=== PATIENT | male | born 1945 | race Caucasian/White ===

== ENCOUNTER 2017-04-21 08:42 | Emergency (ER) | payer BC, MEDICARE ==
[2017-04-21] MEDS ORDERED: Ketorolac INJ* 30 MG/ML 1 ML VIAL IV PUSH ONE (09:02)
[2017-04-21] MEDS ORDERED: Morphine INJ* 4 MG/ML 1 ML SYRINGE IV ONE (09:02)
--- NOTE | 2017-04-21 09:05 | ED ---
GI/ HPI - HPI Summary HPI Summary: 71M w/ PMH of kidney stones presents with right sided flank pain for two weeks. He states that when he has kidney stones it causes sciatica pain. He states over the past week his sciatica pain has gotten worst and at first it was just his toes that were numb but now it his entire right foot. He was seen at [facility] on 04/15 and told that he has a 2mm stone. They did not have a urologist available until May 01. He does not know who he would be following up with. Today he come in because he can not manage his pain at home. He took norco and said that it doesn't help. He has been taking flomax and ibuprofen. He denies any nausea, vomiting, diarrhea, constipation, dysuria, hematuria, frequency and urgency. He denies any injury. No loss of bowel or bladder or saddle anaesthesia His last kidney stone was 2 years ago and needed intervention with a stone placement done by Dr Farmer in [facility] who is now retired. He has been using a strainer and has not caught the stone yet. He denies any fevers. - History of Current Complaint Chief Complaint: EDFlankPain Time Seen by Provider: 04/21/17 08:49 Stated Complaint: FLANK PAIN Pain Intensity: 5 - Allergy/Home Medications Allergies/Adverse Reactions: Allergies Allergy/AdvReac Type Severity Reaction Status Date / Time Tetanus Toxoid Allergy Unknown Verified 04/21/17 09:36 Reaction Details PMH/Surg Hx/FS Hx/Imm Hx Endocrine/Hematology History: Denies: Hx Diabetes Cardiovascular History: Reports: Hx Hypertension, Other Cardiovascular Problems/ Disorders - stent Infectious Disease History: Denies: Traveled Outside the [place] in Last 30 Days - Family History Known Family History: Positive: Cardiac Disease Review of Systems Negative: Fever Negative: Chest Pain Negative: Shortness Of Breath Negative: Vomiting, Diarrhea, Nausea Positive: flank pain All Other Systems Reviewed And Are Negative: Yes Physical Exam Triage Information Reviewed: Yes Vital Signs On Initial Exam: Initial Vitals Temp Pulse Resp BP Pulse Ox 98.2 F 71 20 161/97 97 04/21/17 08:43 04/21/17 08:43 04/21/17 08:43 04/21/17 08:43 04/21/17 08:43 Vital Signs Reviewed: Yes Appearance: Positive: Well-Appearing Skin: Positive: Warm, Dry Head/Face: Positive: Normal Head/Face Inspection Eyes: Positive: Normal, EOMI, ED, Conjunctiva Clear ENT: Positive: Normal ENT inspection, Pharynx normal, TMs normal Respiratory/Lung Sounds: Positive: Clear to Auscultation, Breath Sounds Present Cardiovascular: Positive: Normal, RRR Abdomen Description: Positive: Nontender, Soft, Other: - pos SLR right. Negative: CVA Tenderness (R), CVA Tenderness (L) Bowel Sounds: Positive: Present Diagnostics - Vital Signs Vital Signs Temp Pulse Resp BP Pulse Ox 04/21/17 08:43 98.2 F 71 20 161/97 97 - Laboratory Result Diagrams: 04/21/17 09:23 04/21/17 09:23 Lab Statement: Any lab studies that have been ordered have been reviewed, and results considered in the medical decision making process. - Radiology abd Xray Interpretation: No Acute Changes Radiology Interpretation Completed By: Radiologist - Ultrasound No standard instances Ultrasound Interpretation: Positive (See Comments) - IMPRESSION: Marked right hydronephrosis with a weak right ureteral jets. Ultrasound Interpretation Completed By: Radiologist GRETTAU Course/Dx - Course Course Of Treatment: 71M w/ PMH of kidney stones presents with right sided flank pain for two weeks. He states that when he has kidney stones it causes sciatica pain. He states over the past week his sciatica pain has gotten worst and at first it was just his toes that were numb but now it his entire right foot. He was seen at [facility] on 04/15 and told that he has a 2mm stone. They did not have a urologist available until May 01. He does not know who he would be following up with. Today he come in because he can not manage his pain at home. He took norco and said that it doesn't help. He has been taking flomax and ibuprofen. He denies any nausea, vomiting, diarrhea, constipation, dysuria , hematuria, frequency and urgency. on exam neg CVA tenderness, pos SLR right. labs kidney function elevated. He has been straining in his urine and his stone has not passed. spoke with dr vega said would not take to OR. gave option of inpt pain management or outpt. pt decided to go outpt. got u/s before left. patient will follow up with urology. patient understands and agrees with plan. - Diagnoses Differential Diagnoses - Male: Pyelonephritis, Ureteral Calculi, Urinary Tract Infection Provider Diagnoses: Kidney stone - Physician Notifications Discussed Care Of Patient With: dr vega Time Discussed With Above Provider: 11:15 - would not operate, send home with pain meds or admit for pain control Discharge - Discharge Plan Condition: Good Disposition: HOME Prescriptions: Ondansetron ODT TAB* [Zofran 4 MG Odt TAB*] 4 mg PO Q6H PRN #12 tab.odt PRN Reason: Nausea Tamsulosin CAP* [Flomax CAP*] 0.4 mg PO DAILY #7 cap oxyCODONE/Acetamin 5/325 MG* [Percocet 5/325 TAB*] 1 tab PO Q6H PRN #20 tab MDD 4 PRN Reason: Pain Patient Education Materials: Kidney Stones (ED) Referrals: Michaela Nolasco MD [Primary Care Provider] - Salvador Vega MD [Medical Doctor] - Additional Instructions: Take ibuprofen every 6 hours and narcotic as needed every 6 hours Take Zofran every 6 hours for nausea as needed Take Flomax daily Follow up with urology, call office tomorrow for appointment Strain urine until collect stone Return to ED if unable to manage pain at home, develop fever, or any new or worsening symptoms
[2017-04-21] MEDS: NS 0.9% 1000 ML* 2,000 ML IV ONE (09:24)
[2017-04-21 09:40] LABS: Hematocrit 43 % (42-52); Hemoglobin 14.4 g/dl (14.0-18.0); Mean Corpuscular HGB Conc 34 g/dl (31-36); Mean Corpuscular Hemoglobin 31 pg (27-31); Mean Corpuscular Volume 94 fL (80-94); Mean Platelet Volume 8 um3 (7.4-10.4); Red Cell Distribution Width 14 % (10.5-15); White Blood Count 5.7 10^3/ul (3.5-10.8)
[2017-04-21 09:52] LABS: Albumin 4.1 g/dL (3.2-5.2); BUN/Creatinine Ratio 14.1 (8-20); Calcium 9.2 mg/dL (8.6-10.3); EGFR African American 32.2 (>60); Potassium 4.4 mmol/L (3.5-5.0); Total Bilirubin 0.5 mg/dL (0.2-1.0); Total Protein 7.1 g/dL (6.4-8.9)
--- NOTE | 2017-04-21 10:56 | RAD ---
Indication: Right flank pain. Flat and upright views of the abdomen demonstrates no free air. Nonspecific bowel gas pattern is noted. Stool is present throughout the colon. Degenerative changes are noted. IMPRESSION: No definite free air or obstruction is noted. No obvious radiopaque calculi is noted.
[2017-04-21 12:17] LABS: Urine Bilirubin Negative (Negative); Urine Glucose Negative (Negative); Urine Nitrite Negative (Negative)
--- NOTE | 2017-04-21 13:58 | RAD ---
Indication: Right-sided flank pain. Real-time sonography of the kidneys was performed. The right kidney measures 11.3 x 5.1 x 4.8 cm. Marked right hydronephrosis is noted. Cortical cyst right kidney measures 12 x 11 x 13 mm. Left kidney measures 12.1 x 6.1 x 6.5 cm. No hydronephrosis of left kidney is noted. Evaluation of the urinary bladder demonstrates post void residual of 8 mL. No bladder wall masses are noted. There is a weak right ureteral jet. The left ureteral jet is unremarkable. IMPRESSION: Marked right hydronephrosis with a weak right ureteral jets.
[2017-04-21 14:05] VITALS: BP 159/74
== END 2017-04-21 14:04 | disposition home or self-care (01) ==
LOC: ED 08:42
DX: N20.0 Calculus of kidney (principal); R10.84 Generalized abdominal pain
CPT/HCPCS: 36415; 74020; 76770; 80053; 81003; 85025; 96374; 96375; 99283; J1885; J2270

== ENCOUNTER 2017-04-23 11:13 | Day surgery (SDC) | payer MEDICARE ==
[2017-04-23] MEDS ORDERED: Lidocaine 2% PF * 5 ML VIAL ONE ×2 (12:17→17:55)
[2017-04-23] MEDS ORDERED: Propofol* 10 MG/ML 20 ML BTL IV PUSH ONE ×2 (12:17→17:55)
[2017-04-23] MEDS ORDERED: fentaNYL* 50 MCG/ML 2 ML VIAL (100 MCG VIAL) ONE ×2 (12:17→16:53)
[2017-04-23] MEDS ORDERED: Midazolam* 1 MG/ML 5 ML VIAL (5 MG) ONE ×2 (12:17→16:54)
[2017-04-23] MEDS ORDERED: KETAMINE HCL* 50 MG/ML 10 ML VIAL ONE ×2 (12:17→16:54)
[2017-04-23] MEDS ORDERED: Ondansetron INJ* 2 MG/ML VIAL ONE ×2 (12:17→17:55)
[2017-04-23] MEDS ORDERED: Dexamethasone IV* 4 MG/ML 1 ML (4 MG) ONE ×2 (12:17→17:55)
[2017-04-23] MEDS ORDERED: cefTRIAXone(*) 2 GM ADDV.VIAL IVPB ONE (12:46)
[2017-04-23] MEDS ORDERED: Iohexol 180 (CONTRAST) 10 ML SDV IV ONE ×2 (13:02→17:35)
[2017-04-23] MEDS ORDERED: Buffered Lidocaine 0.9% SYRIN* 5 ML/SYR SYRINGE INTRADERM ONE (14:19)
[2017-04-23] MEDS ORDERED: Famotidine IV* 10 MG/ML 2 ML (20 mg) IV ONE (14:19)
[2017-04-23] MEDS ORDERED: Famotidine IV* 10 MG/ML 2 ML (20 mg) ONE (14:26)
[2017-04-23] MEDS ORDERED: Metoprolol Tartrate IV* 1 MG/ML 5 ML VIAL ONE (17:30)
[2017-04-23] MEDS ORDERED: Phenylephrine IV* 40 MCG/ML 10 ML SYRINGE ONE (17:48)
--- NOTE | 2017-04-23 18:41 | RAD ---
INDICATION: Right-sided stent placement. COMPARISON: Comparison is made with a prior renal and bladder ultrasound from April 21, 2017. TECHNIQUE: 31 seconds of intermittent fluoroscopic guidance were provided and 4 spot films of the abdomen were centered on the right side. FINDINGS: There is partial opacification of the right renal collecting system. There is marked dilatation of the renal pelvis and calyces consistent with moderate to severe hydronephrosis. Subsequently there is placement of a double-J stent catheter on the right side which demonstrates normal course. IMPRESSION: INTRAOPERATIVE CONTROL FILMS. CPT II Codes: 6045F
[2017-04-23] MEDS ORDERED: Tamsulosin CAP* 0.4 MG ONE (18:56)
[2017-04-23] MEDS ORDERED: Morphine INJ* 2 MG/ML 1 ML SYRINGE IV PRN (19:27)
[2017-04-23] MEDS ORDERED: PROCHLORPERAZINE INJ 5 MG/ML 2 ML VIAL IV PRN (19:27)
[2017-04-23] MEDS ORDERED: fentaNYL* 50 MCG/ML 2 ML VIAL (100 MCG VIAL) IV PRN (19:27)
[2017-04-23] MEDS ORDERED: oxyCODONE/Acetamin 5/325 MG* TAB PO PRN (19:27)
[2017-04-23 19:59] VITALS: BP 154/92
--- NOTE | 2017-04-24 08:19 | OP ---
CC: Dr. Michaela Nolasco * DATE OF OPERATION: 04/23/17 - [facility] DATE OF : 49 SURGEON: Salvador Alberto MD ANESTHESIOLOGIST: Dr. Gamboa ANESTHESIA: General. PRE-OP DIAGNOSES: 1. Severe right hydronephrosis. 2. Calculus right ureter. POST-OP DIAGNOSES: 1. Severe right hydronephrosis. 2. Calculus right ureter. 3. 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 OPERATIVE PROCEDURE: Cystoscopy, right retrograde pyelogram, right ureteral dilatation, right ureteroscopy and stone extraction, and right stent insertion. INDICATIONS: Mike Kenney is a 71-year-old gentleman who has a history of ureteral calculus for which he underwent uteroscopy in [place] in 2016. He now presented with a 3-week history of right flank pain and was noted to have persistent severe right hydronephrosis. COMPLICATIONS: None. STENT USED: 8.5-Cameroonian 28-cm silicone stent right ureter. OPERATIVE FINDINGS: Severe stricture, right distal ureter with almost complete occlusion of ureteral lumen, small right ureteral calculus. Severe right hydronephrosis and proximal hydroureter. DESCRIPTION OF PROCEDURE: After induction of general anesthesia, the patient was placed in dorsal lithotomy position. Sequential compression devices were in place and functioning. Initial cystoscopy revealed mild stricture at the urethral meatus and mildly enlarged prostate and a normal-appearing bladder. Clear efflux was noted from the left ureter. There was no efflux noted from the right ureter, suggesting a complete obstruction. Guidewire was introduced into the right orifice. After progressing for about a centimeter to a centimeter and half, the wire would not advance any further and attempts at using a hydrophilic glidewire were also unsuccessful. A 6-Cameroonian semi-rigid ureteroscope was introduced and advanced under direct vision. About a centimeter above the ureterovesical junction, a fairly tight stricture was noted with almost complete occlusion of the lumen. A tiny calculus was noted just above the strictured area. Under direct vision, hydrophilic glidewire was advanced through the pinpoint lumen; and, once this was done, I was able to dilate the ureter carefully, initially using a 4- Cameroonian dilating catheter and then using an 8-Cameroonian catheter. Retrograde pyelogram revealed severe hydronephrosis and proximal hydroureter. The ureteroscope was carefully advanced under direct vision. The stricture extended for at least about 2 to 3 cm in length and the mucosa was blanched, suggesting an avascular process, probably secondary to a longstanding stricture. A small calculus was identified and was removed and sent for analysis. The ureteroscope was advanced to the level of the mid ureter which was dilated. The ureteroscope was carefully withdrawn under direct vision, and an 8.5 Cameroonian 28-cm silicone stent was introduced and positioned under fluoroscopy with good proximal and distal positioning obtained. My plan is to leave the stent in for 4 to 6 weeks and then to bring him back for a repeat procedure to reassess the stricture and possibly for balloon dilatation. The patient tolerated the procedure satisfactorily and was transferred back to the recovery area in stable condition. [id number]/CPS #: [id number] VELVET
== END 2017-04-23 19:45 | disposition home or self-care (01) ==
LOC: OR 11:13
PROVIDERS: ATTEND Urology
DX: N13.2 Hydronephrosis with renal and ureteral calculous obstruction (principal); N13.5 Crossing vessel and stricture of ureter without hydronephrosis; I12.9 Hypertensive chronic kidney disease with stage 1 through stage 4 chronic kidney disease, or unspecified chronic kidney disease; I42.9 Cardiomyopathy, unspecified; I25.10 Atherosclerotic heart disease of native coronary artery without angina pectoris; I25.5 Ischemic cardiomyopathy; E78.2 Mixed hyperlipidemia; N18.9 Chronic kidney disease, unspecified
CPT/HCPCS: 74420; 82365; A9270-GY; C1876; J0696; J1100; J2250; J2405; J2704; J3010

== ENCOUNTER 2017-05-12 08:32 | Emergency (ER) | payer MEDICARE ==
[2017-05-12] MEDS ORDERED: HYDROmorphone* 1 MG/ML 1 ML SYR IV ONE (09:32)
[2017-05-12] MEDS ORDERED: NS 0.9% 1000 ML* 1,000 ML IV ONE (09:32)
[2017-05-12] MEDS ORDERED: Ketorolac INJ* 30 MG/ML 1 ML VIAL IV ONE (09:32)
--- NOTE | 2017-05-12 10:05 | RAD ---
INDICATION: Right leg pain, radiation to the leg, recent right ureteral stent placement and hydronephrosis. COMPARISON: Comparison is made with prior renal and bladder ultrasound from April 21, 2017 and May 08, 2017. TECHNIQUE: A CT scan of the abdomen and pelvis was performed without intravenous or oral contrast. Contiguous axial sections were obtained from the lung bases through the symphysis pubis. Images were reconstructed in the coronal and sagittal planes. FINDINGS: There is mild dependent bilateral lower lobe subsegmental atelectasis. No pleural effusion is present. The liver and spleen are normal in size. There is a large coarse calcification along the superior aspect of the right hepatic lobe and a small central calcification. No other focal abnormalities are seen on this noncontrast study. No calcified gallstones are noted. The pancreas appears to be within normal limits. The adrenal glands and kidneys are normal in size. There are small bilateral hypodense renal lesions nonspecific on this noncontrast study although likely representing cysts. There is a punctate 1 mm calculus present in the lower pole of the right kidney. No hydronephrosis is present. There is a double-J stent ureteral catheter present on the right side which demonstrates normal course. No bladder calculi are seen. The aorta is mildly ectatic. There is moderate to severe calcific plaque present. No significant enlarged retroperitoneal lymph nodes are seen. There is a small hiatal hernia present. The stomach, small and large bowel appear nondistended. The appendix is within normal limits. There is mild descending and sigmoid diverticulosis without evidence for diverticulitis. No free intraperitoneal air or fluid is seen. 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 No significant focal osseous abnormality is seen. IMPRESSION: 1. NO EVIDENCE FOR ACUTE FINDING OR CAUSE FOR THE PATIENT'S ABDOMINAL PAIN IS SEEN. 2. STATUS POST RIGHT URETERAL STENT PLACEMENT. NO EVIDENCE FOR HYDRONEPHROSIS. 3. SMALL PUNCTATE NONOBSTRUCTING RIGHT RENAL CALCULUS.
--- NOTE | 2017-05-12 10:19 | RAD ---
INDICATION: Right-sided back pain radiation to the right leg. COMPARISON: There are no prior studies available for comparison. TECHNIQUE: Contiguous axial sections were obtained beginning above the T12 vertebra and continuing through the L5-S1 disc space. Images were reconstructed in the sagittal and coronal planes. FINDINGS: The vertebra are in normal alignment. No fracture is seen. At the L2-L3 level there is mild posterior endplate spurring and a mild broad-based disc bulge. No significant spinal canal narrowing is present. There is mild bilateral neural foraminal narrowing. At the L3-L4 level there is a mild broad-based disc bulge and mild hypertrophic changes within the facet joints. There is mild spinal canal and mild bilateral neural foraminal narrowing. At the L4-L5 level there is a [id number] broad-based disc bulge and moderate hypertrophic changes within the facet joints. There is moderate spinal canal narrowing and moderate to severe bilateral neural foraminal narrowing. At the L5-S1 level there is no evidence for disc bulge or herniation. There are moderate hypertrophic changes within the facet joints. No significant spinal canal narrowing is present. There is mild neural foraminal narrowing on the left side. At the L4-L5 level there is a small amount of aortic aneurysm measuring 2.6 cm in transverse dimension. IMPRESSION: 1. DIFFUSE DEGENERATIVE DISC DISEASE AND FACET OSTEOARTHRITIC CHANGES MOST PROMINENT AT THE L4-L5 LEVEL. AT THAT LEVEL THERE IS MODERATE SPINAL CANAL NARROWING AND MODERATE TO SEVERE BILATERAL NEURAL FORAMINAL NARROWING. IF THE PATIENT'S SYMPTOMS PERSIST CONSIDER FOLLOW-UP MR IMAGING. 2. 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
[2017-05-12 10:56] LABS: Hematocrit 46 % (42-52); Hemoglobin 15.7 g/dl (14.0-18.0); Mean Corpuscular HGB Conc 34 g/dl (31-36); Mean Corpuscular Hemoglobin 32 pg (27-31); Mean Corpuscular Volume 93 fL (80-94); Mean Platelet Volume 8 um3 (7.4-10.4); Red Blood Count 4.92 10^6/ul (4.0-5.4); Red Cell Distribution Width 14 % (10.5-15); White Blood Count 7.4 10^3/ul (3.5-10.8)
[2017-05-12 11:08] LABS: Albumin 4.5 g/dL (3.2-5.2); BUN/Creatinine Ratio 16.8 (8-20); C Reactive Protein 1.74 mg/L (< 5.00); Calcium 10.2 mg/dL (8.6-10.3); EGFR African American 37.2 (>60); EGFR Non-African American 28.9 (>60); Globulin 3.2 g/dL (2-4); Potassium 4.6 mmol/L (3.5-5.0); Total Bilirubin 0.6 mg/dL (0.2-1.0); Total Protein 7.7 g/dL (6.4-8.9)
[2017-05-12 11:18] LABS: Urine Bacteria Absent (Absent); Urine Bilirubin Negative (Negative); Urine Glucose Negative (Negative); Urine Nitrite Negative (Negative)
[2017-05-12 13:22] VITALS: BP 127/79
--- NOTE | 2017-05-12 15:02 | ED ---
Meaghan Cabrera Edward, scribed for Waylon Alex MD on 05/12/17 at 0908 . Lower Extremity - HPI Summary HPI Summary: 71 y/o male presents to the ED c/o gradual onset back pain for 5 weeks. The pain is located @ the R lower pack pain radiating down the R leg. The pain is rated 10/10 in severity at triage. Denies trauma. Three days ago the pt bent down to put his socks on and experienced a jolt of pain down the R leg. Associated sx: numbness in the R leg and at the top of the R foot. Denies urinary symptoms. Ibuprofen is not alleviating the symptoms. The pain is aggravated with ambulation and movement. Pt reports sciatica like symptoms with possible correlation with a kidney stone. Recently taken off pain medication. Former smoker. SHx heart stent. PMHx kidney stones. Denies CP and SOB. - History of Current Complaint Chief Complaint: EDGeneral Stated Complaint: BACK LEG PAIN Time Seen by Provider: 05/12/17 09:06 Hx Obtained From: Patient Onset/Duration: Weeks - 5 Severity Currently: Severe Pain Intensity: 10 Pain Scale Used: 0-10 Numeric Timing: Constant Location: Is Discrete @ - R low back Associated Signs And Symptoms: Positive: Other - Numbness down leg and top of R foot Aggravating Factor(s): Ambulation, Movement Alleviating Factor(s): Nothing - Not with ibuprofen - Allergies/Home Medications Allergies/Adverse Reactions: Allergies Allergy/AdvReac Type Severity Reaction Status Date / Time Tetanus Toxoid Allergy Unknown Verified 04/23/17 11:12 Reaction Details PMH/Surg Hx/FS Hx/Imm Hx Previously Healthy: No Endocrine/Hematology History: Denies: Hx Diabetes Cardiovascular History: Reports: Hx Hypertension, Other Cardiovascular Problems/ Disorders - stent History: Reports: Hx Kidney Stones - RIGHT - Surgical History Surgery Procedure, Year, and Place: Stent Infectious Disease History: Denies: Traveled Outside the [place] in Last 30 Days - Family History Known Family History: Positive: Cardiac Disease - Social History Alcohol Use: Rare Hx Substance Use: No Substance Use Type: Reports: None Hx Tobacco Use: Yes Smoking Status (MU): Former Smoker Type: Cigarettes, Pipe Amount Used/How Often: once in a while Have You Smoked in the Last Year: No Review of Systems Constitutional: Negative Eyes: Negative ENT: Negative Cardiovascular: Negative Respiratory: Negative Gastrointestinal: Negative Genitourinary: Negative Positive: Myalgia - Lower back pain down R leg Skin: Negative Positive: Numbness - down R leg and @ top of R foot Psychological: Normal All Other Systems Reviewed And Are Negative: Yes Physical Exam - Summary Physical Exam Summary: The patient is well-nourished in mild distress and in no acute pain. The skin is warm and dry and skin color reflects adequate perfusion. HEENT: The head is normocephalic and atraumatic. The pupils are equal and reactive. The conjunctivae are clear and without drainage. Nares are patent and without drainage. Mouth reveals moist mucous membranes and the throat is without erythema and exudate. The external ears are intact. The ear canals are patent and without drainage. The tympanic membranes are intact. Neck is supple with full range of motion and non-tender. There are no carotid bruits. There is no neck vein distension. Respiratory: Chest is non-tender. Lungs are clear to auscultation and breath sounds are symmetrical and equal. Cardiovascular: Hear is regular rate and rhythm. There is no murmur or rub auscultated. There is no peripheral edema and pulses are symmetrical and equal. Abdomen: The abdomen is soft and non-tender. There are normal bowel sounds heard in all four quadrants and there is no organomegaly palpated. There is no CVA tenderness. Musculoskeletal: There is tenderness @ R paravertebral musculature of the lumbar spine, @ the posterior superior iliac spine and @ R sciatic nodule. There is straight leg raising. The patients hips are contralateral to the lower extremities. There is good motor strength in the R leg - no deficits noted. There is good capillary refill. There is no peripheral edema or calf tenderness elicited. Neurological: Patient is alert and oriented to person, place and time. The patient has symmetrical motor strength in all four extremities. Cranial nerves are grossly intact. Deep tendon reflexes are symmetrical and equal in all four extremities. Psychiatric: The patient has an appropriate affect and does not exhibit any anxiety or depression. Triage Information Reviewed: Yes Vital Signs On Initial Exam: Initial Vitals Temp Pulse Resp BP Pulse Ox 97.9 F 67 20 175/101 97 05/12/17 08:35 05/12/17 08:35 05/12/17 08:35 05/12/17 08:35 05/12/17 08:35 Vital Signs Reviewed: Yes Diagnostics - Vital Signs Vital Signs Temp Pulse Resp BP Pulse Ox 05/12/17 08:35 97.9 F 67 20 175/101 97 - Laboratory Lab Results: Lab Results 05/12/17 05/12/17 05/12/17 Range/Units 10:40 10:40 10:40 WBC 7.4 (3.5-10.8) 10^3/ul RBC 4.92 (4.0-5.4) 10^6/ul Hgb 15.7 (14.0-18.0) g/dl Hct 46 (42-52) % MCV 93 (80-94) fL MCH 32 H (27-31) pg MCHC 34 (31-36) g/dl RDW 14 (10.5-15) % Plt Count 189 (150-450) 10^3/ul MPV 8 (7.4-10.4) um3 Neut % (Auto) 70.4 (38-83) % Lymph % (Auto) 17.1 L (25-47) % [place] % (Auto) 7.7 (1-9) % Eos % (Auto) 4.2 (0-6) % Baso % (Auto) 0.6 (0-2) % Absolute Neuts (auto) 5.2 (1.5-7.7) 10^3/ul Absolute Lymphs (auto) 1.3 (1.0-4.8) 10^3/ul Absolute Monos (auto) 0.6 (0-0.8) 10^3/ul Absolute Eos (auto) 0.3 (0-0.6) 10^3/ul Absolute Basos (auto) 0 (0-0.2) 10^3/ul Absolute Nucleated RBC 0.01 10^3/ul Nucleated RBC % 0.1 Sodium 136 (133-145) mmol/L Potassium 4.6 (3.5-5.0) mmol/L Chloride 105 (101-111) mmol/L Carbon Dioxide 25 (22-32) mmol/L Anion Gap 6 (2-11) mmol/L BUN 38 H (6-24) mg/dL Creatinine 2.26 H (0.67-1.17) mg/dL Est GFR ( Amer) 37.2 (>60) Est GFR (Non-Af Amer) 28.9 (>60) BUN/Creatinine Ratio 16.8 (8-20) Glucose 107 H (70-100) mg/dL Lactic Acid 1.0 (0.5-2.0) mmol/L Calcium 10.2 (8.6-10.3) mg/dL Total Bilirubin 0.60 (0.2-1.0) mg/dL AST 14 (13-39) U/L ALT 17 (7-52) U/L Alkaline Phosphatase 63 (34-104) U/L C-Reactive Protein 1.74 (< 5.00) mg/L Total Protein 7.7 (6.4-8.9) g/dL Albumin 4.5 (3.2-5.2) g/dL Globulin 3.2 (2-4) g/dL Albumin/Globulin Ratio 1.4 (1-3) Lipase 41 (11.0-82.0) U/L Urine Color Urine Appearance Urine pH (5-9) Ur Specific [place] (1.010-1.030) Urine Protein (Negative) Urine Ketones (Negative) Urine Blood (Negative) Urine Nitrate (Negative) Urine Bilirubin (Negative) Urine Urobilinogen (Negative) Ur Leukocyte Esterase (Negative) Urine WBC (Auto) (Absent) Urine RBC (Auto) (Absent) Urine Bacteria (Absent) Urine Glucose (Negative) 05/12/17 Range/Units 10:50 WBC (3.5-10.8) 10^3/ul RBC (4.0-5.4) 10^6/ul Hgb (14.0-18.0) g/dl Hct (42-52) % MCV (80-94) fL MCH (27-31) pg MCHC (31-36) g/dl RDW (10.5-15) % Plt Count (150-450) 10^3/ul MPV (7.4-10.4) um3 Neut % (Auto) (38-83) % Lymph % (Auto) (25-47) % [place] % (Auto) (1-9) % Eos % (Auto) (0-6) % Baso % (Auto) (0-2) % Absolute Neuts (auto) (1.5-7.7) 10^3/ul Absolute Lymphs (auto) (1.0-4.8) 10^3/ul Absolute Monos (auto) (0-0.8) 10^3/ul Absolute Eos (auto) (0-0.6) 10^3/ul Absolute Basos (auto) (0-0.2) 10^3/ul Absolute Nucleated RBC 10^3/ul Nucleated RBC % Sodium (133-145) mmol/L Potassium (3.5-5.0) mmol/L Chloride (101-111) mmol/L Carbon Dioxide (22-32) mmol/L Anion Gap (2-11) mmol/L BUN (6-24) mg/dL Creatinine (0.67-1.17) mg/dL Est GFR ( Amer) (>60) Est GFR (Non-Af Amer) (>60) BUN/Creatinine Ratio (8-20) Glucose (70-100) mg/dL Lactic Acid (0.5-2.0) mmol/L Calcium (8.6-10.3) mg/dL Total Bilirubin (0.2-1.0) mg/dL AST (13-39) U/L ALT (7-52) U/L Alkaline Phosphatase (34-104) U/L C-Reactive Protein (< 5.00) mg/L Total Protein (6.4-8.9) g/dL Albumin (3.2-5.2) g/dL Globulin (2-4) g/dL Albumin/Globulin Ratio (1-3) Lipase (11.0-82.0) U/L Urine Color Yellow Urine Appearance Clear Urine pH 5.0 (5-9) Ur Specific [place] 1.012 (1.010-1.030) Urine Protein Negative (Negative) Urine Ketones Negative (Negative) Urine Blood 1+ H (Negative) Urine Nitrate Negative (Negative) Urine Bilirubin Negative (Negative) Urine Urobilinogen Negative (Negative) Ur Leukocyte Esterase Trace H (Negative) Urine WBC (Auto) Trace(0-5/hpf) (Absent) Urine RBC (Auto) 2+(6-10/hpf) H (Absent) Urine Bacteria Absent (Absent) Urine Glucose Negative (Negative) Result Diagrams: 05/12/17 10:40 05/12/17 10:40 Lab Statement: Any lab studies that have been ordered have been reviewed, and results considered in the medical decision making process. - CT ABD/PEL CT CT Interpretation: No Acute Changes - 1. NO EVIDENCE FOR ACUTE FINDING OR CAUSE FOR THE PATIENT'S ABDOMINAL PAIN IS SEEN. 2. STATUS POST RIGHT URETERAL STENT PLACEMENT. NO EVIDENCE FOR HYDRONEPHROSIS. 3. SMALL PUNCTATE NONOBSTRUCTING RIGHT RENAL CALCULUS. ED PHYSICIAN AGREEABLE CT Interpretation Completed By: Radiologist LUMBAR SPINE CT CT Interpretation: Positive (See Comments) - 1. DIFFUSE DEGENERATIVE DISC DISEASE AND FACET OSTEOARTHRITIC CHANGES MOST PROMINENT AT THE L4-L5 LEVEL. AT THAT LEVEL THERE IS MODERATE SPINAL CANAL NARROWING AND MODERATE TO SEVERE BILATERAL NEURAL FORAMINAL NARROWING. IF THE PATIENT'S SYMPTOMS PERSIST CONSIDER FOLLOW-UP MR IMAGING. 2. 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 ED PHYSICIAN AGREEABLE. CT Interpretation Completed By: Radiologist Re-Evaluation - Re-Evaluation 1 Re-Evaluation Time: 11:33 Comment: Discuss CT results 2 Re-Evaluation Time: 13:00 Change: Improved Comment: Pt is feeling much better Lower Extremity Course/Dx - Course Assessment/Plan: 71 y/o male presents to the ED c/o gradual onset back pain for 5 weeks. The pain is located @ the R lower pack pain radiating down the R leg. The pain is rated 10/10 in severity at triage. Denies trauma. Three days ago the pt bent down to put his socks on and experienced a jolt of pain down the R leg. Associated sx: numbness in the R leg and at the top of the R foot. Denies urinary symptoms. Ibuprofen is not alleviating the symptoms. The pain is aggravated with ambulation and movement. Pt reports sciatica like symptoms with correlation with a 2mm kidney stone. Recently taken off pain medication. Former smoker. SHx heart stent. PMHx kidney stones. Denies CP and SOB. ABD/PEL CT SHOWS 1. NO EVIDENCE FOR ACUTE FINDING OR CAUSE FOR THE PATIENT'S ABDOMINAL PAIN IS SEEN. 2. STATUS POST RIGHT URETERAL STENT PLACEMENT. NO EVIDENCE FOR HYDRONEPHROSIS. 3. SMALL PUNCTATE NONOBSTRUCTING RIGHT RENAL CALCULUS. LUMBAR SPINE CT SHOWS 1. DIFFUSE DEGENERATIVE DISC DISEASE AND FACET OSTEOARTHRITIC CHANGES MOST PROMINENT AT THE L4-L5 LEVEL. AT THAT LEVEL THERE IS MODERATE SPINAL CANAL NARROWING AND MODERATE TO SEVERE BILATERAL NEURAL FORAMINAL NARROWING. IF THE PATIENT'S SYMPTOMS PERSIST CONSIDER FOLLOW-UP MR IMAGING. 2. 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 On second re-eval at 13:00 the pt is feeling much better. Pt will be d/c home w/ follow-up with Dr. Ojeda. - Diagnoses Provider Diagnoses: Degenerative disc disease, Spinal stenosis, no hydronephrosis, Sciatic leg pain , Renal failure, chronic Discharge - Discharge Plan Condition: Stable Disposition: HOME Prescriptions: Diazepam TAB(*) [Valium TAB(*)] 5 mg PO Q6H PRN #30 tab MDD 4 PRN Reason: Pain HYDROmorphone TAB* [Dilaudid TAB*] 4 mg PO Q6H PRN #20 tab MDD 4 PRN Reason: pain Patient Education Materials: Degenerative Disc Disease (ED), Cervical Spinal Stenosis (ED), Lumbar Spinal Stenosis (ED) Referrals: Marvni Ojeda MD [Medical Doctor] - 3 Days (PLEASE F/U IN 2-3 DAYS) The documentation as recorded by the Meaghan montiel Edward accurately reflects the service I personally performed and the decisions made by me, Waylon Alex MD.
== END 2017-05-12 13:23 | disposition home or self-care (01) ==
LOC: ED 08:32
DX: N19 Unspecified kidney failure (principal); M54.9 Dorsalgia, unspecified; Z87.891 Personal history of nicotine dependence; M53.3 Sacrococcygeal disorders, not elsewhere classified
CPT/HCPCS: 36415; 72131; 74176; 80053; 81003; 81015; 83605; 83690; 85025; 86140; 87086; 96374; 96375; 99283; J1170; J1885

== ENCOUNTER 2017-05-25 07:49 | Day surgery (SDC) | payer MEDICARE ==
--- NOTE | 2017-05-24 14:54 | HP ---
CC: Dr. Michaela Nolasco * ADMITTING HISTORY AND PHYSICAL: DATE OF ADMISSION: 05/25/17 ADMITTING DIAGNOSES: 1. Right hydronephrosis. 2. Stricture right ureter. PLANNED PROCEDURE: Right retrograde, right ureteroscopy, possible balloon dilatation, and right stent replacement. SURGEON: Salvador Alberto MD. HISTORY OF PRESENT ILLNESS: Mike Kenney is a 71-year-old gentleman with a history of ureteral calculus for which he had undergone ureteroscopy in [place] in 2016. He had presented with severe right flank pain and was noted to have right hydronephrosis with a fairly severe stricture in the right distal ureter and a small calculus, which was removed. Because of the severity of the stricture, he is now being brought in for balloon dilatation, ureteroscopy and stent replacement. PAST MEDICAL HISTORY: Significant for: 1. Coronary artery disease. 2. Recurrent renal calculi. 3. High cholesterol. 4. Hypertension. MEDICATIONS: On admission: 1. Oxycodone p.r.n. 2. Entresto. 3. Levothyroxine 1 tablet daily. 4. Crestor 1 tablet daily. 5. Metoprolol daily (doses not known at the time of this dictation.) ALLERGIES: TETANUS TOXOID. REVIEW OF SYSTEMS: He denies any chest pain or shortness of breath. There is no history of diabetes mellitus. PHYSICAL EXAMINATION GENERAL: Reveals an uncomfortable-appearing middle-aged gentleman. VITAL SIGNS: Blood pressure is 182/102, pulse 99 per minute, temperature 97.2, oxygen saturation 96% on room air. LUNGS: Clear bilaterally. CARDIOVASCULAR: Regular rate and rhythm. S1, S2. ABDOMEN: Soft with right flank tenderness. IMPRESSION AND PLAN: A 71-year-old gentleman with severe stricture in the right distal ureter. Planned procedure is right retrograde, right ureteroscopy , possible balloon dilatation, and right stent replacement. [id number]/[facility] #: [id number] [facility]
[~2017-05-25 07:49] MED LIST: Buffered Lidocaine 0.9% SYRIN* 5 ML/SYR SYRINGE INTRADERM ONE; Famotidine IV* 10 MG/ML 2 ML (20 mg) IV ONE
[2017-05-25] MEDS ORDERED: Famotidine IV* 10 MG/ML 2 ML (20 mg) ONE (08:27)
[2017-05-25] MEDS ORDERED: Midazolam* 1 MG/ML 5 ML VIAL (5 MG) ONE (10:15)
[2017-05-25] MEDS ORDERED: Iohexol 180 (CONTRAST) 10 ML SDV IV ONE (10:15)
[2017-05-25] MEDS ORDERED: fentaNYL* 50 MCG/ML 2 ML VIAL (100 MCG VIAL) ONE ×3 (10:20→12:22)
[2017-05-25] MEDS ORDERED: Ketorolac INJ* 30 MG/ML 1 ML VIAL ONE (10:40)
[2017-05-25] MEDS ORDERED: Lidocaine 2% PF * 5 ML VIAL ONE (10:40)
[2017-05-25] MEDS ORDERED: Ondansetron INJ* 2 MG/ML VIAL ONE (10:40)
[2017-05-25] MEDS ORDERED: Propofol* 10 MG/ML 20 ML BTL IV PUSH ONE (10:40)
[2017-05-25] MEDS ORDERED: Dexamethasone IV* 4 MG/ML 1 ML (4 MG) ONE (10:40)
[2017-05-25] MEDS ORDERED: DiMENhydriNATE IV* 50 MG/ML VIAL IV PUSH PRN (10:59)
[2017-05-25] MEDS ORDERED: HYDROmorphone INJ* 1 MG/ML CARPUJECT SYRINGE IV PRN (10:59)
[2017-05-25] MEDS ORDERED: oxyCODONE TAB* 5 MG TAB PO PRN (10:59)
[2017-05-25] MEDS ORDERED: Acetaminophen TAB* 325 MG PO PRN (10:59)
[2017-05-25 12:10] VITALS: BP 141/87
--- NOTE | 2017-05-25 12:29 | RAD ---
INDICATION: Right ureteroscopy, stent insertion COMPARISONS: CT dated May 12, 2017 TECHNIQUE: Fluoroscopy was provided for a retrograde pyelogram and stent placement. Total fluoroscopy time is: 15 seconds FINDINGS: Spot images demonstrate contrast is noted within the renal collecting system. A ureteral stent is noted. IMPRESSION: FLUOROSCOPY WAS PROVIDED FOR A RETROGRADE PYELOGRAM AND STENT PLACEMENT CPT II Codes: 6045F
--- NOTE | 2017-05-26 04:39 | OP ---
CC: Dr. Michaela Nolasco * DATE OF OPERATION: 05/25/17 - [facility] DATE OF : 49 SURGEON: Salvador Alberto MD ANESTHESIOLOGIST: Dr. Griffith. ANESTHESIA: General. PRE-OP DIAGNOSES: 1. Right hydronephrosis. 2. Stricture, right distal ureter. 3. Right ureteral calculus. POST-OP DIAGNOSES: 1. Right hydronephrosis. 2. Stricture, right distal ureter. 3. Right ureteral calculus. OPERATIVE PROCEDURE: Cystoscopy, right stent removal, right retrograde pyelogram, right ureteroscopy and stone extraction, right pyeloscopy, right ureteral balloon dilatation, and right stent insertion. COMPLICATIONS: None. STENT USED: 8.5-Swiss 26 cm silicone stent, right ureter. INDICATIONS: Mike Kenney is a 71-year-old gentleman who had undergone a ureteroscopy in [place] over a year ago. He then presented with right flank pain and was noted to have severe right hydronephrosis and a stricture in the right ureter. He has undergone urgent stent insertion and is now being brought in for further evaluation and management. OPERATIVE FINDINGS: 1. Stricture right distal ureter. 2. Calculus embedded in mucosa, right distal ureter. 3. Right hydronephrosis. DESCRIPTION OF PROCEDURE: After induction of general anesthesia, the patient was placed in dorsal lithotomy position. Sequential compression devices were in place and functioning. Initial cystoscopy revealed a normal-appearing urethra and a mildly enlarged prostate. The bladder was examined. The stent was seen exiting from the right ureter and was removed intact without difficulty. Retrograde pyelogram revealed right hydronephrosis and proximal hydroureter. A 6-Swiss semirigid ureteroscope was introduced and advanced under direct vision. The last 2 to 3 cm of the ureter appeared involved by a stricture with blanched mucosa typical of a stricture. In the mucosa, an approximately 2 mm calculus was noted to be embedded. This was carefully disengaged and removed using a 3 pronged grasper. The ureteroscope was then carefully advanced under direct vision. The remainder of the ureter was visualized and was unremarkable. The ureteroscope was advanced into the renal pelvis and pyeloscopy was performed. Dilated calyces were noted with no other additional calculi noted. The ureteroscope was carefully removed under direct vision. Balloon dilatation of the distal right ureter was successfully carried out and after completion of this, an 8.5- Swiss 26 cm silicone stent was placed. Good proximal and distal positioning was confirmed. The bladder was emptied. The patient tolerated the procedure satisfactorily and was transferred back to the recovery area in stable condition. [id number]/[facility] #: [id number] MTDD
== END 2017-05-25 12:11 | disposition home or self-care (01) ==
LOC: OR 07:49
PROVIDERS: ATTEND Urology
DX: N13.1 Hydronephrosis with ureteral stricture, not elsewhere classified (principal); N13.2 Hydronephrosis with renal and ureteral calculous obstruction; I25.10 Atherosclerotic heart disease of native coronary artery without angina pectoris; I25.2 Old myocardial infarction; Z95.5 Presence of coronary angioplasty implant and graft; I10 Essential (primary) hypertension; E03.9 Hypothyroidism, unspecified
CPT/HCPCS: 74420; C1876; J0696; J1100; J1580; J1885; J2250; J2405; J2704; J3010

== ENCOUNTER 2017-08-13 10:45 | Day surgery (SDC) | payer MEDICARE ==
--- NOTE | 2017-08-10 18:44 | HP ---
CC: Dr. Michaela Nolasco; Dr. Alberto * ADMITTING HISTORY AND PHYSICAL: DATE OF ADMISSION: 08/13/17 HISTORY OF PRESENT ILLNESS: Mike Kenney is a 72-year-old gentleman who had initially undergone ureteroscopy in [place] in 2016. I had evaluated him a few months ago and noted that he had a fairly severe stricture in the right distal ureter. He had undergone ureteroscopy, balloon dilatation, and stent insertion with resolution of the hydronephrosis. The stent was removed on June 27 and followup ultrasound on 2 occasions since then now has confirmed recurrence of the hydronephrosis most likely secondary to recurrent stricture. PAST MEDICAL HISTORY: Significant for: 1. Renal calculi. 2. Coronary artery disease. 3. Hypertension. 4. High cholesterol. MEDICATIONS ON ADMISSION: 1. Levothyroxine one tablet daily. 2. Crestor one tablet daily. 3. Metoprolol 25 mg daily. 4. Aspirin 81 mg daily. 5. Entresto one tablet daily. ALLERGIES AND INTOLERANCES: TETANUS TOXOID. PHYSICAL EXAMINATION GENERAL: Reveals a pleasant elderly gentleman. VITAL SIGNS: Blood pressure is 130/80, pulse 68 per minute and regular, oxygen saturation 93% on room air, temperature 97.1. CARDIOVASCULAR EXAM: Regular rate and rhythm. S1, S2. LUNGS: Clear bilaterally. ABDOMEN: Soft with mild right flank tenderness. IMPRESSION: A 72-year-old gentleman with recurrent stricture, status post initial ureteroscope in 2015, who is now being brought in for right retrograde, right ureteroscopy, possible balloon dilatation, and stent insertion. [id number]/[facility] #: [id number] [facility]
[~2017-08-13 10:45] MED LIST changes: -Famotidine IV* 10 MG/ML 2 ML (20 mg) IV ONE; +Gentamicin ADULT (*) 160 MG in NS 0.9% 100 ML* 100 ML IVPB ONE; +NS 0.9% 1000 ML* 1,000 ML IV SCH; +cefTRIAXone(*) 2 GM in NS 0.9% 100 ML* 100 ML IVPB ONE
[2017-08-13] MEDS ORDERED: cefTRIAXone(*) 2 GM ADDV.VIAL IVPB ONE (11:08)
[2017-08-13] MEDS ORDERED: Buffered Lidocaine 0.9% SYRIN* 5 ML/SYR SYRINGE ONE (11:08)
[2017-08-13] MEDS ORDERED: Midazolam* 1 MG/ML 2 ML VIAL (2 MG) ONE (12:45)
[2017-08-13] MEDS ORDERED: Iohexol 180 (CONTRAST) 10 ML SDV IV ONE ×2 (13:04→13:30)
[2017-08-13] MEDS ORDERED: Famotidine IV* 10 MG/ML 2 ML (20 mg) ONE (13:07)
[2017-08-13] MEDS ORDERED: Dexamethasone IV* 4 MG/ML 1 ML (4 MG) ONE (13:15)
[2017-08-13] MEDS ORDERED: Propofol* 10 MG/ML 20 ML BTL IV PUSH ONE (13:15)
[2017-08-13] MEDS ORDERED: fentaNYL* 50 MCG/ML 2 ML VIAL (100 MCG VIAL) ONE (13:22)
[2017-08-13] MEDS ORDERED: Desflurane* 240 ML INH ONE (13:27)
[2017-08-13] MEDS ORDERED: EPHEDrine (Pressors)* 50 MG/ML VIAL ONE (13:37)
[2017-08-13] MEDS ORDERED: HYDROcodone/ACETAMIN 5-325 MG* 1 TAB PO PRN (13:40)
[2017-08-13] MEDS ORDERED: Ondansetron INJ* 2 MG/ML VIAL IV PRN (13:40)
[2017-08-13] MEDS ORDERED: PROCHLORPERAZINE INJ 5 MG/ML 2 ML VIAL IV PRN (13:40)
[2017-08-13] MEDS ORDERED: Acetaminophen TAB* 325 MG PO PRN (13:40)
[2017-08-13] MEDS ORDERED: fentaNYL* 50 MCG/ML 2 ML VIAL (100 MCG VIAL) IV PRN (13:40)
--- NOTE | 2017-08-13 14:24 | RAD ---
CPT II Codes: 6045F INDICATION: Right flank pain. Fluoroscopic services provided for referring physician. 4. Spot images were obtained. There is right hydronephrosis and hydroureter. Approximately 13 seconds of fluoroscopy time was used. There is placement of a right ureteral stent. IMPRESSION: Right hydronephrosis. Placement of a right ureteral stent.
[2017-08-13 16:16] VITALS: BP 140/82
--- NOTE | 2017-08-14 06:40 | OP ---
DATE OF OPERATION: 08/13/17 [facility] DATE OF : 49 SURGEON: Salvador Alberto MD ANESTHESIOLOGIST: Dr. Underwood ANESTHESIA: General. PRE-OP DIAGNOSES: 1. Right hydronephrosis. 2. Stricture, right distal ureter. POST-OP DIAGNOSES: 1. Right hydronephrosis. 2. Stricture, right distal ureter. OPERATIVE PROCEDURE: Cystoscopy, right retrograde pyelogram, right uteroscopy, right ureteral balloon dilatation, and right stent insertion. COMPLICATIONS: None. STENT USED: 8.5 Anguillan 28 cm silicone stent, right ureter. OPERATIVE FINDINGS: Tight strictured right distal ureter just above ureterovesical junction with right hydronephrosis and hydroureter. POSTOPERATIVE CONDITION: Stable. INDICATIONS: Mike Kenney is a 72-year-old gentleman, who had initially been evaluated a few months ago and had been noted to have a fairly severe stricture in the distal right ureter. This may have been as a result of a ureteroscopy that he had done in [place] last year. He did well after the last stent insertion with resolution of the hydronephrosis, however, after the stent was removed, ultrasound was obtained, which revealed recurrent right hydronephrosis , which has persisted. I suspect he has a recurrent stricture. DESCRIPTION OF PROCEDURE: After induction of general anesthesia, the patient was placed in dorsal lithotomy position. Sequential compression devices were in place and functioning. Initial cystoscopy revealed a normal-appearing urethra and mild- to-moderately enlarged prostate. The bladder was examined and appeared unremarkable. A guidewire was introduced into the right ureter just above the ureterovesical junction, resistance was encountered. Retrograde pyelogram revealed right hydronephrosis and a dilated proximal mid and distal right ureter all the way down to close to the bladder. A 6-Anguillan semirigid ureteroscope was introduced and advanced under direct vision. Just inside the uretero-vesical junction, there was a fairly narrow stricture noted. Ureteroscope was carefully advanced through the stricture and the remainder of the ureter was dilated and unremarkable. Next, balloon dilatation was carried out of the strictured area under fluoroscopic monitoring. Once this was done, an 8.5-Anguillan 28 cm silicone stent was introduced and positioned under fluoroscopy with good proximal and distal positioning obtained. The patient tolerated the procedure satisfactorily and was transferred back to the recovery area in stable condition. [id number]/[facility] #: [id number] [facility]EL[facility]
== END 2017-08-13 15:00 | disposition home or self-care (01) ==
LOC: OR 10:45
PROVIDERS: ATTEND Urology
DX: N13.1 Hydronephrosis with ureteral stricture, not elsewhere classified (principal); I25.10 Atherosclerotic heart disease of native coronary artery without angina pectoris; I10 Essential (primary) hypertension; E78.00 Pure hypercholesterolemia, unspecified; Z95.5 Presence of coronary angioplasty implant and graft; E03.9 Hypothyroidism, unspecified
CPT/HCPCS: 74420; A9270-GY; C1876; J0696; J1100; J1580; J2250; J2704; J3010

== ENCOUNTER 2017-12-05 10:25 | Day surgery (SDC) | payer MEDICARE ==
--- NOTE | 2017-11-30 21:16 | HP ---
CC: Michaela Nolasco; Dr. Clement Tejada in [facility] * ADMITTING HISTORY AND PHYSICAL: DATE OF ADMISSION: 12/05/17 ADMITTING DIAGNOSES: 1. Stricture, right ureter. 2. Right hydronephrosis. PLANNED PROCEDURES: Right ureteroscopy, right retrograde and stent replacement. SURGEON: Salvador Alberto MD. HISTORY OF PRESENT ILLNESS: Mike Kenney is a 72-year-old gentleman with a history of stricture in the distal ureter. He had undergone ureteroscopy in 2016 in [place] and I had evaluated him in 2017 and noted a fairly severe stricture in the distal ureter, which has been managed with an indwelling stent but has recurred when I last tried to remove the stent. With the stent in place his most recent ultrasound had revealed resolution of the hydronephrosis and he is now being brought in to see whether the stricture is still obstructing. PAST MEDICAL HISTORY: 1. Significant for coronary artery disease. 2. Hypertension. 3. High cholesterol. 4. History of renal calculi. 5. Chronic kidney disease (was referred to Dr. Tejada, but has not seen him yet) . MEDICATIONS: 1. Crestor 1 tablet daily. 2. Aspirin 81 mg a day. 3. Metoprolol 25 mg a day. 4. Entresto 1 tablet daily. 5. Levothyroxine one tablet daily. ALLERGIES: TETANUS TOXOID. PHYSICAL EXAMINATION GENERAL: Reveals a pleasant elderly gentleman. VITAL SIGNS: Blood pressure is 122/70, pulse 75 per minute, oxygen saturation 96% on room air. CARDIOVASCULAR EXAM: Regular rate and rhythm. S1, S2. LUNGS: Clear bilaterally. ABDOMEN: Soft with mild right flank tenderness. LABORATORY DATA: I reviewed his labs, which reveal a BUN of 32 and a creatinine of 2.49 (in April of 2017, his creatinine was 2.56) IMPRESSION: A 72-year-old gentleman with a stricture in the right ureter who is being brought in for right ureteroscopy, retrograde and stent replacement. [id number]/[facility] #: [id number] MTDD
[~2017-12-05 10:25] MED LIST changes: -Gentamicin ADULT (*) 160 MG in NS 0.9% 100 ML* 100 ML IVPB ONE; -NS 0.9% 1000 ML* 1,000 ML IV SCH; +cefTRIAXone 2000 MG SYRINGE IVPB ONCE (in NaCl) IVPB ONE
[2017-12-05] MEDS ORDERED: Metoprolol Tartrate TAB* 25 MG ONE (10:57)
[2017-12-05] MEDS ORDERED: fentaNYL* 50 MCG/ML 2 ML VIAL (100 MCG VIAL) ONE (12:19)
[2017-12-05] MEDS ORDERED: Propofol* 10 MG/ML 20 ML BTL IV PUSH ONE (12:19)
[2017-12-05] MEDS ORDERED: Lidocaine 2% PF * 5 ML VIAL ONE (12:19)
[2017-12-05] MEDS ORDERED: Iohexol 180 (CONTRAST) 10 ML SDV IV ONE (12:20)
[2017-12-05] MEDS ORDERED: Acetaminophen TAB* 325 MG PO PRN (12:44)
[2017-12-05] MEDS ORDERED: Naloxone* 0.4 MG/ML 1 ML VIAL IV PRN (12:44)
[2017-12-05] MEDS ORDERED: fentaNYL* 50 MCG/ML 2 ML VIAL (100 MCG VIAL) IV PRN (12:44)
[2017-12-05] MEDS ORDERED: EPHEDrine (Pressors)* 50 MG/ML VIAL ONE (12:53)
[2017-12-05 14:00] VITALS: BP 144/85
--- NOTE | 2017-12-05 14:39 | RAD ---
INDICATION: Right ureteral stent placement COMPARISON: None FINDINGS: 20 seconds of fluoroscopy were provided for the urology department. Fluoroscopic spot imaging of the abdomen were obtained for operative control. CPT II Codes: 6045F (fluoro time doc)
--- NOTE | 2017-12-06 08:21 | OP ---
CC: Dr. Michaela Nolasco; Dr. Tejada of [facility] * DATE OF OPERATION: 12/05/17 - SDS DATE OF : 49 SURGEON: Salvador Alberto MD ANESTHESIOLOGIST: Dr. Atkins ANESTHESIA: General. PRE-OP DIAGNOSES: 1. Right hydronephrosis. 2. Stricture, right ureter. POST-OP DIAGNOSES: 1. Right hydronephrosis. 2. Stricture, right ureter. OPERATIVE PROCEDURE: Cystoscopy, right stent removal, right retrograde pyelogram, right ureteroscopy, and biopsy of lesion right ureter, right ureteral balloon dilatation, and right stent insertion. INDICATIONS: Mike Kenney is a 72-year-old gentleman, who had ureteroscopy done in [place] in 2016. When I evaluated him, he had right hydronephrosis associated with a severe stricture in the distal right ureter. He has been managed with an indwelling stent with resolution of the hydronephrosis while the stent is in place, but recurrence of the hydronephrosis when the stent has been removed. COMPLICATIONS: None. POSTOPERATIVE CONDITION: Stable. STENT USED: 8.5-Icelandic 28-cm silicone stent, right ureter. OPERATIVE FINDINGS: 1. Stricture, right distal ureter about a centimeter above the ureterovesical junction. 2. Small area of irregular hyperemic mucosa just above the stricture area, possibly inflammatory response, less likely low-grade superficial neoplasm. SPECIMENS: 1. Washings, right ureter for cytology. 2. Biopsy lesion, right ureter. DESCRIPTION OF PROCEDURE: After induction of general anesthesia, the patient was placed in dorsal lithotomy position. Sequential compression devices were in place and functioning. Initial cystoscopy revealed a normal-appearing urethra and a mildly enlarged prostate. The bladder was examined. The stent was seen exiting from the right orifice and removed. Retrograde pyelogram revealed mild fullness of the right collecting system. A 6-Icelandic semi-rigid ureteroscope was introduced and advanced under direct vision. About a centimeter to 1.5 cm above the ureterovesical junction, the mucosa was blanched and somewhat avascular in appearance consistent with the appearance of a stricture. There was no significant narrowing since the patient has had a stent in for a while. Just above the area of the stricture, the mucosa was irregular and hyperemic. The ureteroscope was carefully advanced the entire length of the ureter and there was no other abnormality noted. Washings were obtained from the right ureter and sent for cytology. Next, using a biopsy forceps, congressional representative biopsies were obtained from the lesion in the ureter and these specimens as usual were fairly small. A balloon dilator was then used to balloon dilate the last 4 to 5 cm of the ureter and once this was completed, an 8.5-Icelandic 28-cm silicone stent was introduced without difficulty. My plan is to leave the stent in for a month and then after stent removal to get a followup ultrasound to see if the hydronephrosis recurs. [id number]/[facility] #: [id number] [facility] SYSTEMDavis
== END 2017-12-05 14:14 | disposition home or self-care (01) ==
LOC: OR 10:25
PROVIDERS: ATTEND Urology
DX: N13.1 Hydronephrosis with ureteral stricture, not elsewhere classified (principal); I25.10 Atherosclerotic heart disease of native coronary artery without angina pectoris; I25.5 Ischemic cardiomyopathy; E03.9 Hypothyroidism, unspecified; I10 Essential (primary) hypertension; N18.9 Chronic kidney disease, unspecified; I25.2 Old myocardial infarction; Z95.5 Presence of coronary angioplasty implant and graft
CPT/HCPCS: 74420; 88112; 88305; C1876; J0696; J2704; J3010

== ENCOUNTER → 2018-01-21 | Day surgery (SDC) | payer MEDICARE ==
[~2018-01-21] MED LIST changes: -Buffered Lidocaine 0.9% SYRIN* 5 ML/SYR SYRINGE INTRADERM ONE; +Dexamethasone IV* 4 MG/ML 1 ML (4 MG) ONE; +Iohexol 180 (CONTRAST) 10 ML SDV IV ONE; +Lidocaine 2% PF * 5 ML VIAL ONE; +Midazolam* 1 MG/ML 5 ML VIAL (5 MG) ONE; +Naloxone* 0.4 MG/ML 1 ML VIAL IV PRN; +Ondansetron INJ* 2 MG/ML VIAL ONE; +Ondansetron ODT TAB* 4 MG PO PRN; +Phenylephrine IV* 40 MCG/ML 10 ML SYRINGE ONE; +Propofol* 10 MG/ML 20 ML BTL IV PUSH ONE; -cefTRIAXone 2000 MG SYRINGE IVPB ONCE (in NaCl) IVPB ONE; +cefTRIAXone(*) 2 GM ADDV.VIAL IVPB ONE; -cefTRIAXone(*) 2 GM in NS 0.9% 100 ML* 100 ML IVPB ONE; +fentaNYL* 50 MCG/ML 2 ML VIAL (100 MCG VIAL) IV PRN; +fentaNYL* 50 MCG/ML 2 ML VIAL (100 MCG VIAL) ONE; +oxyCODONE/Acetamin 5/325 MG* TAB PO PRN
[2018-01-21 18:50] VITALS: BP 139/81
--- NOTE | 2018-01-21 19:35 | HP ---
CC: Dr. Michaela Nolasco * ADMITTING HISTORY AND PHYSICAL: DATE OF ADMISSION: 01/21/18 - [facility] ADMITTING DIAGNOSES: 1. Right hydronephrosis. 2. Recurrent stricture. 3. Right distal ureter. SURGEON: Dr. Alberto. PLANNED PROCEDURE: Right retrograde, right ureteroscopy, and stent insertion. HISTORY OF PRESENT ILLNESS: Mike Kenney is a 72-year-old gentleman with a history of stricture in the distal ureter. I had initially evaluated him after he had had a ureteroscopy procedure done at [facility], and I had noted that he had developed ureteral stricture. I have dilated this on several occasions and the hydronephrosis resolves after dilatation and stent insertion, but recurs after stent removal. I have also discussed with him the possibility of resection of the distal ureter and reimplant but because of an upcoming prior commitment in terms of travel, he would like to have a stent placed now for short-term management. PAST MEDICAL HISTORY: Significant for: 1. Recurrent stricture, right distal ureter. 2. Coronary artery disease. 3. Hypertension. 4. Chronic kidney disease. MEDICATIONS: On admission: 1. Aspirin 81 mg a day. 2. Crestor 1 tablet daily. 3. Entresto 1 tablet daily. 4. Metoprolol 25 mg a day. 5. Levothyroxine 1 tablet daily. ALLERGIES: TETANUS TOXOID. PHYSICAL EXAMINATION GENERAL: Reveals a pleasant elderly gentleman, who is alert and oriented. VITAL SIGNS: Blood pressure is 150/80, pulse 68 per minute, respirations 18 per minute. LUNGS: Clear bilaterally. CARDIOVASCULAR: Regular rate and rhythm. ABDOMEN: Soft with mild right flank tenderness. DIAGNOSTIC STUDIES: He also had a diuretic nuclear scan done prior to this admission, which was consistent with right-sided obstruction. IMPRESSION: A 72-year-old gentleman with recurrent stricture in the right distal ureter. PLAN: The plan is for right retrograde ureteroscopy and stent insertion. He will probably require resection of the right distal ureter and reimplant for definitive treatment of this recurrent stricture. [id number]/[facility] #: [id number] MTDD
--- NOTE | 2018-01-21 20:17 | RAD ---
INDICATION: Right ureteroscopy COMPARISON: None FINDINGS: 16 seconds of fluoroscopy were provided for the urology department. Fluoroscopic spot imaging of the abdomen were obtained for operative control and culminated and stent placement. CPT II Codes: G9500 (fluoro time doc)
--- NOTE | 2018-01-22 08:04 | OP ---
CC: Dr. Michaela Nolasco * DATE OF OPERATION: 01/21/18 - [facility] DATE OF : 49 SURGEON: Salvador Alberto MD ANESTHESIOLOGIST: Dr. Lopez. ANESTHESIA: General. PRE-OP DIAGNOSES: 1. Right hydronephrosis. 2. Stricture right distal ureter. POST-OP DIAGNOSES: 1. Right hydronephrosis. 2. Stricture right distal ureter. OPERATIVE PROCEDURE: Cystoscopy, right retrograde pyelogram, right ureteroscopy , right ureteral balloon dilatation, and right stent insertion. COMPLICATIONS: None. STENT USED: 8.5 Montenegrin 28 cm silicon stent right ureter. POSTOPERATIVE CONDITION: Stable. INDICATIONS: Miek Kenney is a 72-year-old gentleman who I had originally evaluated for findings related to a stricture in the right distal ureter causing right hydronephrosis. He has had several procedures now where he has a right stent placed with a complete resolution of the hydronephrosis, but recurrence of the hydronephrosis after stent removal. At this time, I even obtained a nuclear scan to see whether this was representing a dilated, but non- obstructed system. The nuclear scan showed evidence of obstruction and ultrasound showed moderate right hydronephrosis and he is now being brought in for management of the stricture and the hydronephrosis. OPERATIVE FINDINGS: Stricture right distal ureter with right hydronephrosis and proximal hydroureter. DESCRIPTION OF PROCEDURE: After induction of general anesthesia, the patient was placed in the dorsal lithotomy position. Sequential compression devices were in place and functioning. Initial cystoscopy revealed a normal-appearing urethra, a mildly enlarged prostate. The bladder was examined and was unremarkable. A guidewire was introduced into the right ureter. Retrograde pyelogram revealed right hydronephrosis and proximal dilated right ureter. The ureter was dilated all the way down to about 3 to 4 cm above the ureterovesical junction where it abruptly tapered. A 6-Montenegrin ureteroscope was introduced and advanced under direct vision. The 2 to 3 cm of ureter just above the ureterovesical junction was relatively normal and then there was a stricture about 3 to 4 cm above the ureterovesical junction with a fairly narrow lumen. There was no evidence of any suspicious ureteral lesions noted. Balloon dilatation of the stricture was carried out under fluoroscopic monitoring and once this was done an 8.5 Montenegrin 28 cm silicone stent was introduced and positioned under fluoroscopy. Prior to doing the balloon dilatation washings were obtained from the right distal ureter and sent for cytology. My plan is to leave the stent in for longer this time, and I have also discussed with the patient regarding the long-term solution of resection of the distal right ureter and reimplantation and he will think about this also. [id number]/[facility] #: [id number] MTDD
== END | disposition home or self-care (01) ==
LOC: OR 16:30
PROVIDERS: ATTEND Urology
DX: N13.1 Hydronephrosis with ureteral stricture, not elsewhere classified (principal); I25.10 Atherosclerotic heart disease of native coronary artery without angina pectoris; N18.9 Chronic kidney disease, unspecified; I12.9 Hypertensive chronic kidney disease with stage 1 through stage 4 chronic kidney disease, or unspecified chronic kidney disease; Z95.5 Presence of coronary angioplasty implant and graft; I25.5 Ischemic cardiomyopathy; E03.9 Hypothyroidism, unspecified; F43.10 Post-traumatic stress disorder, unspecified; E78.00 Pure hypercholesterolemia, unspecified
CPT/HCPCS: 74420; 88112; C1876; J0696; J1100; J2250; J2405; J2704; J3010

== ENCOUNTER 2018-05-11 18:43 | Emergency (ER) | payer MEDICARE ==
--- NOTE | 2018-05-11 19:11 | ED ---
Abdominal Pain/Male - HPI Summary HPI Summary: Pt is a 72 year old male with a chief complaint of kidney pain in his R back area that started a couple of days ago while he was mowing the lawn. It came on gradually and has progressively gotten worse, and he said that he thought it was a kidney infection, which came back negative. The pt said that he is supposed to have a sonogram on the but he cannot wait because the pain is too strong. The pt has a history of stents and kidney stones. The pain is worse upon back flexion. - History of Current Complaint Chief Complaint: EDFlankPain Stated Complaint: RT FLANK PAIN Time Seen by Provider: 05/11/18 18:58 Hx Obtained From: Patient Onset/Duration: Gradual Onset Severity Initially: Moderate Severity Currently: Moderate Pain Intensity: 10 Pain Scale Used: 0-10 Numeric Location: Other - R mid-lower back Character: Sharp Aggravating Factor(s): Movement Alleviating Factor(s): Other: - rest - Allergies/Home Medications Allergies/Adverse Reactions: Allergies Allergy/AdvReac Type Severity Reaction Status Date / Time Tetanus Vaccines and Toxoid Allergy n/v Verified 01/21/18 15:22 PMH/Surg Hx/FS Hx/Imm Hx Previously Healthy: No Endocrine/Hematology History: Reports: Hx Thyroid Disease - ON DAILY MEDS Denies: Hx Diabetes Cardiovascular History: Reports: Hx Hypertension - ON MEDICATIONS, Other Cardiovascular Problems/Disorders - stent Respiratory History: Denies: Other Respiratory Problems/Disorders GI History: Reports: Hx Gastroesophageal Reflux Disease Denies: Other GI Disorders History: Reports: Hx Kidney Stones - RIGHT Denies: Other Problems/Disorders Musculoskeletal History: Reports: Hx Bursitis - RT ARM Hx OF 2010 Denies: Other Musculoskeletal History Sensory History: Reports: Hx Contacts or Glasses - GLASSES Denies: Hx Hearing Aid Opthamlomology History: Reports: Hx Contacts or Glasses - GLASSES Neurological History: Denies: Other Neuro Impairments/Disorders - Surgical History Surgery Procedure, Year, and Place: Stent X 3 ONE HERE 2 IN [place]. CARDIAC STENT 3 YEARS AGO [facility] Hx Anesthesia Reactions: No Infectious Disease History: No Infectious Disease History: Denies: Traveled Outside the [place] in Last 30 Days - Family History Known Family History: Positive: Cardiac Disease - Social History Lives: With Family Alcohol Use: None Alcohol Amount: FEW DRINKS/YEAR Hx Substance Use: No Substance Use Type: Reports: None Hx Tobacco Use: Yes Smoking Status (MU): Former Smoker Type: Cigarettes Amount Used/How Often: once in a while Have You Smoked in the Last Year: No Review of Systems Negative: Fever Positive: Myalgia - mid-lower R back pain All Other Systems Reviewed And Are Negative: Yes Physical Exam - Summary Physical Exam Summary: Appearance: Well-appearing, Well-nourished, lying in bed comfortable Skin: Warm, dry, no obvious rash Eyes: sclera anicteric, no conjunctival pallor ENT: mucous membranes moist Neck: deferred Respiratory: No signs of respiratory distress Cardiovascular: Appears well perfused, pulses are nml Abdomen: deferred Musculoskeletal: Moving all 4 extremities without obvious discomfort, some pain upon back flexion. Neurological: Awake and alert, mentation is normal, speech is fluent and appropriate Psychiatric: affect is normal, does not appear anxious or depressed Triage Information Reviewed: Yes Vital Signs On Initial Exam: Initial Vitals Temp Pulse Resp BP Pulse Ox 99.2 F 74 17 164/87 96 05/11/18 18:48 05/11/18 18:48 05/11/18 18:48 05/11/18 18:48 05/11/18 18:48 Vital Signs Reviewed: Yes Diagnostics - Vital Signs Vital Signs Temp Pulse Resp BP Pulse Ox 05/11/18 18:48 99.2 F 74 17 164/87 96 - Laboratory Lab Statement: Any lab studies that have been ordered have been reviewed, and results considered in the medical decision making process. - CT No standard instances CT Interpretation: Positive (See Comments) - CT abd/pelvis: 1. There is slight increase in size of small hiatal hernia. 2. As previously seen, there is a right ureteral stent with no significant hydronephrosis and no visible right renal or ureteral calculus. There is new periureteral fat stranding surrounding the distal right ureter, possible right ureteritis. 3. Stable colonic diverticulosis without evidence for acute diverticulitis. CT Interpretation Completed By: Radiologist - ED physician has reviewed this report. Abdominal Pain Fem Course/Dx - Course Course Of Treatment: This is a 72-year-old man with a chronic ureteral stent due to ureteral obstruction at the bladder inlet. He is suffering from low back pain, which appears to be musculoskeletal, but he is concerned that the stent may have come out of position. A CT scan will be obtained to confirm appropriate position of the stent. He has or had urinary studies through his urologist. There is no fever or other concern over urinary tract infection here. If the CT scan shows good position of the stent, he will be discharged with reassurance and analgesia. - Diagnoses Provider Diagnoses: Back pain Discharge - Sign-Out/Discharge Documenting (check all that apply): Patient Departure - Discharge Plan Condition: Good Disposition: HOME Prescriptions: Oxycodone HCl/Acetaminophen [Percocet 5-325 mg Tablet] 1 each PO Q4HR PRN #8 tablet MDD 4 tabs PRN Reason: Pain Patient Education Materials: Acute Low Back Pain (ED) Referrals: Salvador Alberto MD [Medical Doctor] - - Attestation Statements Document Initiated by Scribe: Yes Documenting Scribe: Madina Magallon Provider For Whom Scribe is Documenting (Include Credential): Fernando Mejias MD. Scribe Attestation: Madina Cabrera, scribed for Fernando Mejias MD. on 05/11/18 at 1705.
--- OUTSIDE RECORDS SUMMARY | 2018-05-11 19:37 | XMS REPORT ---
:1945 External Reference #:[id number] Author Organization [facility] 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 [employer] Unavailable Michaela Nolasco MD Primary Care Physician Unavailable Payers Type Date Identification Numbers Payment Provider Subscriber Commercial Policy Number: [id number] [employer] Mike Kenney Group Number: [id number] [address] [address] PayID: [id number] [place] [address] Problems Date Description Provider Status Onset: 04/23/2014 Coronary arteriosclerosis Nguyen A Grella, ANP Active Onset: 04/23/2014 Benign essential hypertension Nguyen A Grella, ANP Active Onset: 04/23/2014 Pure hypercholesterolemia Nguyen A Grella, ANP Active Onset: 04/23/2014 Primary cardiomyopathy Nguyen A Grella, ANP Active Onset: 04/23/2014 Dyspnea Nguyen A Grella, ANP Active Onset: 06/11/2015 Essential hypertension Nguyen A Grella, ANP Active Onset: 06/11/2015 Cardiomyopathy, unspecified Nguyen A Grella, ANP Active Onset: 06/16/2016 Chronic ischemic heart disease Nguyen A Grella, ANP Active Onset: 06/16/2016 Mixed hyperlipidemia Nguyen A Grella, ANP Active Onset: 06/16/2016 Hypertensive chronic kidney disease Nguyen A Grella, ANP Active w stg 1-4/unsp chr kdny Onset: 03/26/2017 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 kidney 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, 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, 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 Family History Date Family Member(s) Problem(s) Comments Father due to Liver Disease () Mother due to CO () Social History Type Date Description Comments Lives With Diet Patient is on a diabetic diet Occupation Retired ADL's/IADL's Independent with all ADL's Cigarette Use Quit 30 YRS AGO ETOH Use Drinks Alcoholic Beverages Occasionally Smoking Patient is a former smoker Daily Caffeine Patient consumes minimal amounts of caffeine Allergies, Adverse Reactions, Alerts Date Description Reaction Status Severity Comments 09/17/2013 Tetanus active Medications Medication Date Status Form Strength Qnty SIG Indications Ordering Provider Aspirin Ec Active Tablets DR 81mg 90tabs 1 by mouth Reserve Low Dose 018 every day MD Dawit Entresto Active Tablets 49-51mg 180tab 1 tab by I25.5 Reserve 016 s mouth MD Dawit twice a day Metoprolol Active Tablets 25mg 180tab 1 by mouth I10 Chaz Tartrate 016 s twice a MD Dawit day Nitrostat Active Tablets Sub 0.4mg 50tabs 1 tab sl Reserve 000 every 5 MD Dawit min x3 chest pain Crestor Active Tablets 20mg 90tabs 1 by mouth Reserve 000 every day MD Dawit at bedtime Fish Oil Active Capsules 500mg 1 po daily Unknown Burp-Less 000 Synthroid Active Tablets 75mcg 1 by mouth Unknown 000 every day Tylenol Active Capsules 325mg as needed Unknown 000 Klonopin Hx Tablets 0.5mg 30tabs 1-2 tabs I25.5 Chaz 016 - p.o. [facility] MD Dawit prn 016 insomnia Entresto Hx Tablets 24-26mg 60tabs 1 by mouth I25.5 Chaz 016 - twice a MD Dawit day 016 Clonazepam Hx Tablets 0.5mg 30tabs 1-2 tabs I25.5 Reserve 016 p.o. [facility] MD Dawit prn insomnia Aspirin Hx Tablets DR 81mg 90tabs Take 1 Chaz 015 - Tablet MD Dawit Daily 018 Lisinopril Hx Tablets 5mg 90tabs 1 By Mouth I10 Chaz 015 - Every Day MD Dawit 016 Brilinta 0 Hx Tablets 90mg 180tab 1 tab by 414.01 Surya L 000 - s mouth MD Jackson, twice a PhD 015 day Aspir-[address] 81mg 60tabs 1 po qd Unknown 000 Crestor 0 Hx Tablets 5mg 90tabs 1 po qd Unknown 000 Cialis 0 Hx Tablets 10mg 3tabs 1 po qd Unknown 000 Aspirin Ec [address] 325mg 1 by mouth Unknown 000 - every day 015 Metoprolol 0 Hx Tablets 25mg 90tabs /2 Tab By I10 Reserve Tartrate 000 - Mouth MD Dawit Twice A 016 Day Melatonin 0 Hx Capsules 5mg 1 by mouth Unknown 000 every at bedtime as needed Vital Signs Date Vital Result Comment 04/24/2018 BP Systolic Sitting Right Arm 128 mmHg BP Diastolic Sitting Right Arm 76 mmHg Heart Rate 60 /min Respiratory Rate 16 /min Height 71 inches 5'11" Weight 244.00 lb BMI (Body Mass Index) 34.0 kg/m2 BSA (Body Surface Area) 2.29 m2 [place] body weight in kilograms 78 O2 % BldC Oximetry 97 % Room air 09/17/2017 BP Systolic Sitting Right Arm 128 mmHg BP Diastolic Sitting Right Arm 74 mmHg Heart Rate 68 /min Respiratory Rate 16 /min Height 71 inches 5'11" Weight 246.00 lb BMI (Body Mass Index) 34.3 kg/m2 BSA (Body Surface Area) 2.30 m2 [place] body weight in kilograms 78 03/26/2017 BP Systolic Sitting Right Arm 134 mmHg BP Diastolic Sitting Right Arm 78 mmHg Heart Rate 65 /min Respiratory Rate 16 /min Height 71 inches 5'11" Weight 246.00 lb BMI (Body Mass Index) 34.3 kg/m2 BSA (Body Surface Area) 2.30 m2 [place] body weight in kilograms 78 09/26/2016 BP Systolic Sitting Right Arm 132 mmHg BP Diastolic Sitting Right Arm 74 mmHg Heart Rate 64 /min Height 71 inches 5'11" Weight 245.00 lb BMI (Body Mass Index) 34.2 kg/m2 BSA (Body Surface Area) 2.30 m2 08/22/2016 BP Systolic Sitting Left Arm 170 mmHg mach. 166/77 BP Diastolic Sitting Left Arm 106 mmHg mach. 166/77 Heart Rate 74 /min Respiratory Rate 16 /min Height 71 inches 5'11" Weight 246.00 lb BMI (Body Mass Index) 34.3 kg/m2 BSA (Body Surface Area) 2.30 m2 07/18/2016 BP Systolic Sitting Left Arm 158 mmHg BP Diastolic Sitting Left Arm 84 mmHg Heart Rate 68 /min Respiratory Rate 16 /min Height 71 inches 5'11" Weight 244.00 lb BMI (Body Mass Index) 34.0 kg/m2 BSA (Body Surface Area) 2.29 m2 06/16/2016 BP Systolic Sitting Left Arm 142 mmHg BP Diastolic Sitting Left Arm 78 mmHg Heart Rate 64 /min Respiratory Rate 16 /min Height 71 inches 5'11" Weight 242.00 lb BMI (Body Mass Index) 33.7 kg/m2 BSA (Body Surface Area) 2.29 m2 12/14/2015 BP Systolic Sitting Left Arm 142 mmHg BP Diastolic Sitting Left Arm 90 mmHg Heart Rate 76 /min Height 71 inches 5'11" Weight 245.00 lb BMI (Body Mass Index) 34.2 kg/m2 BSA (Body Surface Area) 2.30 m2 09/22/2015 BP Systolic Sitting Right Arm 122 mmHg BP Diastolic Sitting Right Arm 86 mmHg Heart Rate 75 /min Respiratory Rate 16 /min Height 71 inches 5'11" Weight 244.00 lb BMI (Body Mass Index) 34.0 kg/m2 BSA (Body Surface Area) 2.29 m2 06/22/2015 BP Systolic Sitting Left Arm 140 mmHg BP Diastolic Sitting Left Arm 80 mmHg Heart Rate 78 /min Respiratory Rate 16 /min Height 71 inches 5'11" Weight 239.00 lb BMI (Body Mass Index) 33.3 kg/m2 BSA (Body Surface Area) 2.27 m2 06/11/2015 BP Systolic Sitting Right Arm 130 mmHg BP Diastolic Sitting Right Arm 74 mmHg Heart Rate 68 /min Respiratory Rate 16 /min Height 71 inches 5'11" Weight 240.00 lb BMI (Body Mass Index) 33.5 kg/m2 BSA (Body Surface Area) 2.28 m2 12/09/2014 BP Systolic Sitting Left Arm 132 mmHg BP Diastolic Sitting Left Arm 74 mmHg Heart Rate 64 /min Respiratory Rate 14 /min Height 71 inches 5'11" Weight 241.00 lb BMI (Body Mass Index) 33.6 kg/m2 BSA (Body Surface Area) 2.28 m2 11/06/2014 BP Systolic Sitting Right Arm 162 mmHg BP Diastolic Sitting Right Arm 98 mmHg Heart Rate 70 /min Respiratory Rate 16 /min Height 71 inches 5'11" Weight 238.00 lb BMI (Body Mass Index) 33.2 kg/m2 BSA (Body Surface Area) 2.27 m2 04/23/2014 BP Systolic Sitting Left Arm 130 mmHg BP Diastolic Sitting Left Arm 78 mmHg Heart Rate 60 /min Respiratory Rate 16 /min Height 71 inches 5'11" Weight 229.00 lb BMI (Body Mass Index) 31.9 kg/m2 BSA (Body Surface Area) 2.23 m2 10/23/2013 BP Systolic Sitting Left Arm 146 mmHg BP Diastolic Sitting Left Arm 84 mmHg Heart Rate 66 /min Respiratory Rate 16 /min Height 71 inches 5'11" Weight 228.00 lb BMI (Body Mass Index) 31.8 kg/m2 BSA (Body Surface Area) 2.23 m2 09/17/2013 BP Systolic Sitting Right Arm 128 mmHg BP Diastolic Sitting Right Arm 88 mmHg Heart Rate 88 /min Respiratory Rate 16 /min Height 71 inches 5'11" Weight 228.00 lb BMI (Body Mass Index) 31.8 kg/m2 BSA (Body Surface Area) 2.23 m2 Results Test Date Test Result H/L Range Note Laboratory test finding 12/21/2017 CPK 136 U/L 12-199 TSH 2.21 uIU/mL 0.35-4.94 CBC With Auto Diff 12/21/2017 Abs Basophils 0.1 K/uL 0.0-0.3 Abs Eosinophils 0.4 K/uL 0.0-0.5 Abs Lymphocytes 1.4 K/uL 0.8-5.5 Abs Monocytes 0.7 K/uL 0.1-1.0 Abs Neutrophils 3.4 K/uL 2.1-8.0 Basophil 1.0 % 0.0-4.0 Eosinophil 7.1 % High 0.0-5.0 Hematocrit 42.8 % 41.0-53.0 Hemoglobin 14.5 gm/dL 13.5-18.0 Lymphocyte 23.3 % 16.0-52.0 MCH 31.9 pg 27.0-32.0 MCHC 33.8 g/dL 32.0-36.0 MCV 94.4 fL 80.0-97.0 MPV 8.3 FL 7.1-10.7 Monocyte 11.0 % High 2.0-10.0 Neutrophil 57.6 % 35.0-75.0 PLT Count 200 K/ul 140-400 RBC 4.54 M/uL Low 4.60-6.10 RDW 14.0 % 11.5-14.5 WBC 5.9 K/uL 4.1-11.0 Comprehensive Met Panel-FCM 12/21/2017 A/G Ratio 1.8 Ratio 1.0-2.2 Betsey Egfr 36 1 Low >60 1 Albumin 4.2 g/dL 3.6-4.9 Alkaline Phosphatase 57 U/L 24-140 Alt 19 U/L 3-42 Anion Gap 8 mmol/L 5-15 2 Ast 18 U/L 8-42 BUN 30 mg/dL High 6-26 Calcium 9.2 mg/dL 8.5-10.2 Carbon Dioxide 25 mmol/L 24-34 Chloride# 109 mmol/L 97-110 3 Creatinine 2.2 mg/dL High 0.5-1.4 Globulin 2.3 g/dL 2.0-3.5 Glucose 102 mg/dL 70-105 Non Betsey Egfr 29 1 Low >60 4 Potassium 4.8 mmol/L 3.5-5.2 Sodium 142 mmol/L 135-146 5 Total Bilirubin 0.5 mg/dL 0.1-1.3 Total Protein 6.5 g/dL 6.0-8.0 Lipid 12/21/2017 Chol/ HDL Ratio 3.7 ratio Low 4.0-6.7 Cholesterol 123 mg/dL 50-199 HDL 34 mg/dL 29-71 6 LDL (Calc) 64 mg/dL 20-99 7 Triglycerides 125 mg/dL 30-200 VLDL 25 mg/dL 2-29 LDL Cholesterol Profile 09/20/2017 Cholesterol 143 mg/dL <200 8, 9 Triglycerides 212 mg/dL High <150 8, 10 HDL Cholesterol 37 mg/dL Low >40 8, 11 LDL-Cholesterol 64 mg/dL < 100 8, 12 Laboratory test finding 06/21/2017 CPK 64 U/L 12-199 Creatinine, Urine 163.2 mg/dL Free T4 1.02 ng/dL 0.70-1.48 Microalb/Creat Urine 100.74 ug/mgCreat High 0.00-30.00 Microalbumin 164.4 ug/ml High 0.0-20.0 TSH 3.12 uIU/mL 0.35-4.94 Lipid 06/21/2017 Chol/ HDL Ratio 8.8 ratio High 4.0-6.7 Cholesterol 305 mg/dL High 50-199 13 HDL 35 mg/dL 29-71 LDL (Calc) 208 mg/dL High 20-99 Triglycerides 312 mg/dL High 30-200 14 VLDL 62 mg/dL High 2-29 Comprehensive Met Panel-FCMG 06/21/2017 A/G Ratio 1.7 Ratio 1.0-2.2 Betsey Egfr 35 1 Low >60 Albumin 4.1 g/dL 3.6-4.9 Alkaline Phosphatase 64 U/L 24-140 Alt 17 U/L 3-42 Anion Gap 9 mmol/L 7-16 Ast 13 U/L 8-42 BUN 29 mg/dL High 6-26 Calcium 9.6 mg/dL 8.5-10.2 Carbon Dioxide 25 mmol/L 24-34 15 Chloride# 106 mmol/L 97-110 16 Creatinine 2.2 mg/dL High 0.5-1.4 Globulin 2.4 g/dL 2.0-3.5 Glucose 98 mg/dL 70-105 17 Non Betsey Egfr 29 1 Low >60 Potassium 4.5 mmol/L 3.5-5.2 18 Sodium 140 mmol/L 135-146 19 Total Bilirubin 0.5 mg/dL 0.1-1.3 Total Protein 6.5 g/dL 6.0-8.0 CBC With Auto Diff 06/21/2017 Abs Basophils 0.1 K/uL 0.0-0.3 Abs Eosinophils 0.3 K/uL 0.0-0.5 Abs Lymphocytes 1.5 K/uL 0.8-5.5 Abs Monocytes 0.6 K/uL 0.1-1.0 Abs Neutrophils 3.2 K/uL 2.1-8.0 Basophil 1.0 % 0.0-4.0 Eosinophil 5.9 % High 0.0-5.0 Hematocrit 42.6 % 41.0-53.0 Hemoglobin 14.5 gm/dL 13.5-18.0 Lymphocyte 25.8 % 16.0-52.0 MCH 31.9 pg 27.0-32.0 MCHC 34.1 g/dL 32.0-36.0 MCV 93.5 fL 80.0-97.0 MPV 8.3 FL 7.1-10.7 Monocyte 10.6 % High 2.0-10.0 Neutrophil 56.7 % 35.0-75.0 PLT Count 206 K/ul 140-400 RBC 4.56 M/uL Low 4.60-6.10 RDW 14.4 % 11.5-14.5 WBC 5.6 K/uL 4.1-11.0 LDL Cholesterol Profile 09/26/2016 Cholesterol 151 mg/dL <200 20, 21 Triglycerides 265 mg/dL High <150 20, 22 HDL Cholesterol 38 mg/dL Low >40 20, 23 LDL-Cholesterol 60 mg/dL < 100 20, 24 Basic Metabolic Panel 09/26/2016 Glucose 77 mg/dL 74-106 20 BUN 25 mg/dL High 7-18 20 Creatinine 2.1 mg/dL High 0.6-1.3 20 Glom Filtration Rate, Estimate 33 mL/min >60 20 If 40 mL/min >60 20, 25 BUN/Creat 11.9 ratio 20 Sodium 144 mmol/L 136-145 20 Potassium 4.6 mmol/L 3.5-5.1 20 Chloride 112 mmol/L High 98-107 20 Carbon Dioxide 28 mmol/L 21-32 20 Anion Gap 4 mEq/L Low 8-16 20 Calcium 8.9 mg/dL 8.5-10.1 20 Basic Metabolic Panel 08/14/2016 Glucose 99 mg/dL 74-106 26 BUN 29 mg/dL High 7-18 26 Creatinine 1.9 mg/dL High 0.6-1.3 26 Glom Filtration Rate, Estimate 38 mL/min >60 26 If 45 mL/min >60 26, 27 BUN/Creat 15.2 ratio 26 Sodium 141 mmol/L 136-145 26 Potassium 5.1 mmol/L 3.5-5.1 26 Chloride 107 mmol/L 98-107 26 Carbon Dioxide 28 mmol/L 21-32 26 Anion Gap 6 mEq/L Low 8-16 26 Calcium 8.8 mg/dL 8.5-10.1 26 Laboratory test finding 06/19/2016 A/G Ratio 1.5 Ratio 1.0-2.2 Betsey Egfr 36 Low >60 Albumin 4.0 g/dL 3.6-4.9 Alkaline Phosphatase 59 U/L 24-140 Alt 17 U/L 3-42 Anion Gap 10 mmol/L 6-14 Ast 13 U/L 8-42 BUN 29 mg/dL High 6-26 CPK 52 U/L 12-199 Calcium 9.4 mg/dL 8.5-10.2 Carbon Dioxide 27 mmol/L 24-34 Chloride 106 mmol/L 97-109 Creatinine 2.2 mg/dL High 0.5-1.4 Creatinine, Urine 112.2 mg/dL Globulin 2.6 g/dL 2.0-3.5 Glucose 92 mg/dL 70-105 Microalb/Creat Urine 15.33 ug/mg 0.00-30.00 Microalbumin 17.2 ug/ml 0.0-20.0 Non Betsey Egfr 30 Low >60 PSA 0.800 ng/mL 0.000-4.000 28 Potassium 5.1 mmol/L 3.5-5.2 29 Sodium 138 mmol/L 134-142 30 Total Bilirubin 0.6 mg/dL 0.1-1.3 Total Protein 6.6 g/dL 6.0-8.0 Vit D,25 Hydroxy 46 ng/mL 31-100 CBC With Auto Diff 06/19/2016 Abs Basophils 0.1 K/uL 0.0-0.3 Abs Eosinophils 0.4 K/uL 0.0-0.5 Abs Lymphocytes 1.5 K/uL 0.8-5.5 Abs Monocytes 0.5 K/uL 0.1-1.0 Abs Neutrophils 3.7 K/uL 2.1-8.0 Basophil 1.0 % 0.0-4.0 Eosinophil 6.7 % High 0.0-5.0 Hematocrit 42.4 % 41.0-53.0 Hemoglobin 14.7 gm/dL 13.5-18.0 Lymphocyte 23.6 % 16.0-52.0 MCH 32.1 pg High 27.0-32.0 MCHC 34.6 g/dL 32.0-36.0 MCV 92.9 fL 80.0-97.0 Monocyte 8.9 % 2.0-10.0 Neutrophil 59.8 % 35.0-75.0 PLT Count 188 K/ul 140-400 RBC 4.56 M/uL Low 4.60-6.10 RDW 13.5 % 11.5-14.5 WBC 6.2 K/uL 4.1-11.0 Lipid 06/19/2016 Chol/ HDL Ratio 5.2 ratio 4.0-6.7 Cholesterol 151 mg/dL 50-199 31 HDL 29 mg/dL 29-71 LDL (Calc) 79 mg/dL 20-99 Triglycerides 215 mg/dL High 30-200 32 VLDL 43 mg/dL High 2-29 CBC W/Automated Diff 09/22/2015 White Blood Count 7.3 K/uL 3.4-10.5 Red Blood Count 5.18 M/uL 4.20-5.80 Hemoglobin 16.5 gm/dL 12.8-17.0 Hematocrit 47.1 % 38.0-48.0 Mean Cell Volume 90.9 fl 80.0-96.0 Mean Corpuscular HGB 31.9 pg 27.0-33.0 Mean Corpuscular HGB Conc 35.0 g/dL 31.7-36.0 Platelet Count 205 K/uL 150-400 Red Cell Distri Width SD 43.3 fl 36-51 Red Cell Distri Width %CV 13.3 % 11.6-15.8 Mean Platelet Volume 10.0 fL 6.6-10.6 Neut% 61.9 % 33.0-73.0 Lymph % 23.9 % 17.0-56.0 [place] % 9.1 % 0.0-10.0 Eo% 4.5 % 0.0-5.0 Bas% 0.6 % 0.1-1.0 Neut# 4.50 K/uL 1.8-7.0 Lymph # 1.74 K/uL Low 1.8-7.0 [place] # 0.66 K/uL 0.0-0.8 Eos # 0.33 K/uL 0.0-0.5 Baso # 0.04 K/uL Low 0.1-0.2 Laboratory test finding 09/22/2015 Magnesium 1.8 mg/dL 1.8-2.4 Liver Function Tests 09/22/2015 Total Protein 7.6 g/dL 6.4-8.2 Albumin 3.9 g/dL 3.4-5.0 Globulin 3.7 g/dL 1.9-4.3 Alb/Glob 1.1 ratio Bilirubin,Total 0.5 mg/dL 0.2-1.0 Bilirubin,Direct 0.2 mg/dL 0.0-0.2 Bilirubin,Indirect 0.3 mg/dL 0.0-0.9 Sgot/Ast 20 U/L 15-37 SGPT/Alt 41 U/L 12-78 Alkaline Phosphatase 77 U/L 45-117 LDL Cholesterol Profile 09/22/2015 Cholesterol 160 mg/dL <200 33 Triglycerides 212 mg/dL High <150 34 HDL Cholesterol 36 mg/dL Low >40 35 LDL-Cholesterol 82 mg/dL < 100 36 Basic Metabolic Panel 09/22/2015 Glucose 80 mg/dL 74-106 BUN 30 mg/dL High 7-18 Creatinine 1.5 mg/dL High 0.6-1.3 Glom Filtration Rate, Estimate 49 mL/min >60 If 60 mL/min >60 37 BUN/Creat 20.0 ratio Sodium 141 mmol/L 136-145 Potassium 4.6 mmol/L 3.5-5.1 Chloride 109 mmol/L High 98-107 Carbon Dioxide 25 mmol/L 21-32 Anion Gap 7 mEq/L Low 8-16 Calcium 9.1 mg/dL 8.5-10.1 Laboratory test finding 06/11/2015 A/G Ratio 1.7 Ratio 1.0-2.2 Betsey Egfr 50 Low >60 Albumin 4.2 g/dL 3.6-4.9 Alkaline Phosphatase 59 U/L 24-140 Alt 21 U/L 3-42 Anion Gap 11 mmol/L 6-14 Ast 18 U/L 8-42 BUN 21 mg/dL 6-26 CPK 83 U/L 12-199 Calcium 8.9 mg/dL 8.5-10.2 Carbon Dioxide 24 mmol/L 24-34 Chloride 107 mmol/L 97-109 Creatinine 1.7 mg/dL High 0.5-1.4 Creatinine, Urine 174.3 mg/dL Globulin 2.5 g/dL 2.0-3.5 Glucose 103 mg/dL 70-105 Microalb/Creat Urine 20.48 ug/mg 0.00-30.00 Microalbumin 35.7 ug/ml High 0.0-20.0 Non Betsey Egfr 41 Low >60 PSA 1.680 ng/mL 0.000-4.000 Potassium 4.5 mmol/L 3.5-5.2 Sodium 137 mmol/L 134-142 Total Bilirubin 0.6 mg/dL 0.1-1.3 Total Protein 6.7 g/dL 6.0-8.0 Vit D,25 Hydroxy 42 ng/mL 31-100 Lipid 06/11/2015 Chol/ HDL Ratio 3.7 ratio Low 4.0-6.7 Cholesterol 132 mg/dL 50-199 HDL 36 mg/dL 29-71 LDL (Calc) 73 mg/dL 20-99 Triglycerides 115 mg/dL 30-200 VLDL 23 mg/dL 2- 1 Concerning GFR Guidelines for Americans: Normal function or mild renal disease, if clinically at risk: >/=60 mL/min Moderately decreased: 30-59 Severely decreased: 15-29 Renal failure: <15 2 Updated Reference Range 3 Updated reference range on new analyzer 4 Concerning GFR Guidelines: Normal function or mild renal disease, if clinically at risk: >/=60 mL/min Moderately decreased: 30-59 Severely decreased: 15-29 Renal failure: <15 Glomerular Filtration Rate (GFR) is estimated based on the MDRD equation, which assumes a steady state for creatinine as recommended by the National Kidney Disease Education Program in conjunction with the National Institutes of Health and the National Kidney Foundation. Clinical conditions in which it may be necessary to measure GFR by using clearance methods include extremes of age and body size, severe malnutrition or obesity, diseases of skeletal muscle, paraplegia or quadriplegia, vegetarian diet, rapidly changing kidney function, and calculation of the dose of potentially toxic drugs that are excreted by the kidneys. 5 Updated reference range on new analyzer 6 Per NCEP ATP III Guidelines: Results lower than 40 mg/dL are suggestive of increased risk for coronary artery disease. Results > or=to 60 mg/dL are considered a negative risk factor. 7 Per NCEP ATP III Guidelines: Normal Population <130 Patients with medical conditions: CHD/DM Optimal: <100 Borderline high: 130-159 High: 160-189 Very high: >189 8 Z02.9 9 Reference Guidelines*: Desirable: ........... < 200 mg/dL Borderline High: ..... 200-239 mg/dL High: ................ >=240 mg/dL * The National Cholesterol Education Program (NCEP) 10 Reference Guidelines*: Normal: ............. < 150 mg/dL Borderline High: .... 150-199 mg/dL High: ............... 200-499 mg/dL Very High: .......... > 500 mg/dL * Source: National Cholesterol Education Program (NCEP) 11 Reference Guidelines*: Low HDL: ..... < 40 mg/dL Normal: ..... 40-60 mg/dL Desirable: ... > 60 mg/dL *The National Cholesterol Education Program(NCEP) 12 Reference Guidelines*: Optimal:........... <100 mg/dL Near Optimal....... 100-129 mg/dL Borderline High.... 130-159 mg/dL High............... 160-189 mg/dL Very High.......... >=190 mg/dL * Source: National Cholesterol Education Program (NCEP) 13 Per NCEP ATP III Guidelines: Results lower than 40 mg/dL are suggestive of increased risk for coronary artery disease. Results > or=to 60 mg/dL are considered a negative risk factor. 14 Per NCEP ATP III Guidelines: Normal Population <130 Patients with medical conditions: CHD/DM Optimal: <100 Borderline high: 130-159 High: 160-189 Very high: >189 15 Concerning GFR Guidelines: Normal function or mild renal disease, if clinically at risk: >/=60 mL/min Moderately decreased: 30-59 Severely decreased: 15-29 Renal failure: <15 Glomerular Filtration Rate (GFR) is estimated based on the MDRD equation, which assumes a steady state for creatinine as recommended by the National Kidney Disease Education Program in conjunction with the National Institutes of Health and the National Kidney Foundation. Clinical conditions in which it may be necessary to measure GFR by using clearance methods include extremes of age and body size, severe malnutrition or obesity, diseases of skeletal muscle, paraplegia or quadriplegia, vegetarian diet, rapidly changing kidney function, and calculation of the dose of potentially toxic drugs that are excreted by the kidneys. 16 Concerning GFR Guidelines for Americans: Normal function or mild renal disease, if clinically at risk: >/=60 mL/min Moderately decreased: 30-59 Severely decreased: 15-29 Renal failure: <15 17 Updated reference range on new analyzer 18 Updated reference range on new analyzer 19 Updated reference range on new analyzer 20 E78.2 I12.9 21 Reference Guidelines*: Desirable: ........... < 200 mg/dL Borderline High: ..... 200-239 mg/dL High: ................ >=240 mg/dL * The National Cholesterol Education Program (NCEP) 22 Reference Guidelines*: Normal: ............. < 150 mg/dL Borderline High: .... 150-199 mg/dL High: ............... 200-499 mg/dL Very High: .......... > 500 mg/dL * Source: National Cholesterol Education Program (NCEP) 23 Reference Guidelines*: Low HDL: ..... < 40 mg/dL Normal: ..... 40-60 mg/dL Desirable: ... > 60 mg/dL *The National Cholesterol Education Program(NCEP) 24 Reference Guidelines*: Optimal:........... <100 mg/dL Near Optimal....... 100-129 mg/dL Borderline High.... 130-159 mg/dL High............... 160-189 mg/dL Very High.......... >=190 mg/dL * Source: National Cholesterol Education Program (NCEP) 25 Note: Persistent reduction for 3 months or more in an eGFR <60 mL/min/1.73 m2 defines CKD. Patients with eGFR values >/=60 mL/min/1.73 m2 may also have CKD if evidence of persistent proteinuria is present. The original MDRD equation for estimated GFR is not valid for patients less than 18 years of age. Additional information may be found at www.kdoqi.org. 26 I25.5 27 Note: Persistent reduction for 3 months or more in an eGFR <60 mL/min/1.73 m2 defines CKD. Patients with eGFR values >/=60 mL/min/1.73 m2 may also have CKD if evidence of persistent proteinuria is present. The original MDRD equation for estimated GFR is not valid for patients less than 18 years of age. Additional information may be found at www.kdoqi.org. 28 Beginning 11/05/06 PSA values assayed at [facility] uses chemiluminescence methodology manufactured by [employer] for use on the DXI analyzer. Values obtained with different assay methods or kits can not be used interchangeably. Serum PSA measurement is not an absolute test for malignancy. The PSA value should be used in conjunction with information available from clinical evaluation and other diagnostic procedures. 29 Concerning GFR Guidelines: Normal function or mild renal disease, if clinically at risk: >/=60 mL/min Moderately decreased: 30-59 Severely decreased: 15-29 Renal failure: <15 Glomerular Filtration Rate (GFR) is estimated based on the MDRD equation, which assumes a steady state for creatinine as recommended by the National Kidney Disease Education Program in conjunction with the National Institutes of Health and the National Kidney Foundation. Clinical conditions in which it may be necessary to measure GFR by using clearance methods include extremes of age and body size, severe malnutrition or obesity, diseases of skeletal muscle, paraplegia or quadriplegia, vegetarian diet, rapidly changing kidney function, and calculation of the dose of potentially toxic drugs that are excreted by the kidneys. 30 Concerning GFR Guidelines for Americans: Normal function or mild renal disease, if clinically at risk: >/=60 mL/min Moderately decreased: 30-59 Severely decreased: 15-29 Renal failure: <15 31 Per NCEP ATP III Guidelines: Results lower than 40 mg/dL are suggestive of increased risk for coronary artery disease. Results > or=to 60 mg/dL are considered a negative risk factor. 32 Per NCEP ATP III Guidelines: Normal Population <130 Patients with medical conditions: CHD/DM Optimal: <100 Borderline high: 130-159 High: 160-189 Very high: >189 33 Reference Guidelines*: Desirable: ........... < 200 mg/dL Borderline High: ..... 200-239 mg/dL High: ................ >=240 mg/dL * The National Cholesterol Education Program (NCEP) 34 Reference Guidelines*: Normal: ............. < 150 mg/dL Borderline High: .... 150-199 mg/dL High: ............... 200-499 mg/dL Very High: .......... > 500 mg/dL * Source: National Cholesterol Education Program (NCEP) 35 Reference Guidelines*: Low HDL: ..... < 40 mg/dL Normal: ..... 40-60 mg/dL Desirable: ... > 60 mg/dL *The National Cholesterol Education Program(NCEP) 36 Reference Guidelines*: Optimal:........... <100 mg/dL Near Optimal....... 100-129 mg/dL Borderline High.... 130-159 mg/dL High............... 160-189 mg/dL Very High.......... >=190 mg/dL * Source: National Cholesterol Education Program (NCEP) 37 Note: Persistent reduction for 3 months or more in an eGFR <60 mL/min/1.73 m2 defines CKD. Patients with eGFR values >/=60 mL/min/1.73 m2 may also have CKD if evidence of persistent proteinuria is present. The original MDRD equation for estimated GFR is not valid for patients less than 18 years of age. Additional information may be found at www.kdoqi.org. Procedures Date CPT Code Description Status 04/24/2018 43335 EKG-Tracing And Report Completed 03/15/2018 41281 Echocardiogram Complete Completed 03/26/2017 01501 EKG-Tracing And Report Completed 06/27/2016 01205 Echocardiogram Complete Completed 01/20/2016 48255 EKG Interpretation And Report Only Completed 09/22/2015 49871 EKG-Tracing And Report Completed 10/29/2014 54499 Echocardiogram Complete Completed 09/30/2013 61283 Echocardiogram Complete Completed 09/17/2013 01180 EKG-Tracing And Report Completed 10/14/2010 28495 Decompression subacromial space w/partial acromioplasty Completed w/wo corc 10/14/2010 18526 Lizbeth Procedure distal claviculectomy including Completed distal articula 10/04/2010 97694 EKG Interpretation And Report Only Completed 05/18/2010 31517 Echocardiogram Complete Completed 05/18/2010 01496 Stress Test Interpre And Report Only Completed 05/18/2010 48268 Stress Test Physician Super Only Completed Encounters Type Date Location Provider CPT E/M Dx Office Visit 04/24/2018 11:00a [place] [address] I25.10 I25.5 I10 E78.2 N18.9 Office Visit 09/17/2017 8:40a Cardiology Office Lisa Edward, 63402 I25.5 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, 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 I25.10 I10 E78.2 N18.9 Office Visit 03/26/2017 8:40a Cardiology Office Lisa Edward, 03543 I25.5 MSN, 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 I25.10 I10 E78.2 N18.9 Office Visit 09/26/2016 9:00a [place] [address] I25.5 I25.10 I10 E78.2 I12.9 Office Visit 08/22/2016 8:00a Cardiology Office ANGELICA Falk 58959 I25.5 I25.10 I10 E78.2 F51.05 I12.9 Office Visit 07/18/2016 10:20a [place] [address] I25.5 I25.10 I10 I12.9 F51.05 Office Visit 06/16/2016 10:40a Cardiology Office ANGELICA Falk 18130 I25.10 I10 I25.5 E78.2 I12.9 Office Visit 12/14/2015 10:40a [place] [address] I25.10 I25.5 I10 E78.0 I12.9 Office Visit 09/22/2015 9:40a [place] [address] I10 I25.10 I25.5 E78.0 Office Visit 06/22/2015 9:00a [place] [address] I10 I25.10 I25.5 E78.0 Office Visit 06/11/2015 10:30a Cardiology Office ANGELICA Falk 60140 I25.10 I42.9 I10 E78.0 Office Visit 12/09/2014 3:10p [place] [address] 414.01 425.4 401.1 272.0 Office Visit 11/06/2014 3:10p Cardiology Office ANGELICA Falk 48149 414.01 425.4 401.1 272.0 Office Visit 04/23/2014 8:50a Cardiology Office Nguyen Quintero, ANGELICA 83259 414.01 401.1 272.0 425.4 786.05 Office Visit 10/23/2013 2:50p [place] [address] 414.01 401.1 272.0 786.05 Office Visit 09/17/2013 11:00a [place] [address] 414.01 401.1 272.0 786.05 443.89 Plan of Care Future Appointment(s):10/28/2018 11:00 am - Chaz Pastor MD at Cardiology [id number]/24/2018 - Chaz Pastor MDI25.10 Athscl heart disease of [place] coronary artery w/o ang pctrsComments:Chronic stable CAD. No signs or symptoms of ischemia. On medical therapy.I25.5 Ischemic cardiomyopathyComments:Echo 03/2018 showed near complete EF recovery to 45-50%. Doing great with Entresto. Refills [id number] Essential (primary) hypertensionComments:Well controlled. No changes.E78.2 Mixed hyperlipidemiaComments:On statin. No side effects reported. LDL well controlled.N18.9 Chronic kidney disease, unspecifiedComments:Followed by Dr Meadows. Last Cr 2.2AllNew Medication:Aspirin Ec Low Dose 81 mgFollow up:6 months.
[2018-05-11] MEDS ORDERED: oxyCODONE/Acetamin 5/325 MG* TAB PO ONE (20:58)
--- NOTE | 2018-05-11 21:03 | RAD ---
EXAM: CT Abdomen and Pelvis Without Intravenous Contrast CLINICAL HISTORY: 72 years old, male; Pain; Abdominal pain; Flank; Right; Prior surgery; Surgery date: 1-6 months; Surgery type: Renal stent placed 01/2018; Additional info: Pain r low back/flank, ? ureteral stent in position TECHNIQUE: Axial computed tomography images of the abdomen and pelvis without intravenous contrast. All CT scans at this facility use at least one of these dose optimization techniques: automated exposure control; mA and/or kV adjustment per patient size (includes targeted exams where dose is matched to clinical indication); or iterative reconstruction. Coronal and sagittal reformatted images were created and reviewed. COMPARISON: A/P WO CT ABD/PEL W/O 05/12/2017 9:41 AM FINDINGS: Lung bases: There is bibasilar atelectatic change or scarring. Mediastinum: There is slight increase in size of small hiatal hernia. ABDOMEN: Liver: Stable nodular calcification near the dome of the liver. Gallbladder and bile ducts: Unremarkable. No calcified stones. No ductal dilation. Pancreas: Unremarkable. No ductal dilation. Spleen: Unremarkable. No splenomegaly. Adrenals: Unremarkable. No mass. Kidneys and ureters: As previously seen, there is a right ureteral stent with no significant hydronephrosis and no visible right renal or ureteral calculus. There is new periureteral fat stranding surrounding the distal right ureter, possible right ureteritis. No left renal or ureteral calculi. Stable low-attenuation lesions of the kidneys too small to characterize. Stomach and bowel: Stable colonic diverticulosis without evidence for acute diverticulitis. No obstruction. PELVIS: Appendix: No findings to suggest acute appendicitis. Bladder: Unremarkable. No stones. Reproductive: Stable prostate gland calcifications. ABDOMEN and PELVIS: Intraperitoneal space: Unremarkable. No free air. No significant fluid collection. Bones/joints: Stable diffuse osteopenia and degenerative changes of the spine. No acute fracture. No dislocation. Soft tissues: Unremarkable. Vasculature: Stable atherosclerotic aortic and iliac and femoral artery calcifications. No abdominal aortic aneurysm. Lymph nodes: Unremarkable. No enlarged lymph nodes. IMPRESSION: 1. There is slight increase in size of small hiatal hernia. 2. As previously seen, there is a right ureteral stent with no significant hydronephrosis and no visible right renal or ureteral calculus. There is new periureteral fat stranding surrounding the distal right ureter, possible right ureteritis. 3. Stable colonic diverticulosis without evidence for acute diverticulitis.
[2018-05-11 21:40] VITALS: BP 140/79
== END 2018-05-11 21:39 | disposition home or self-care (01) ==
LOC: ED 18:43
DX: M54.5 Low back pain (principal); Z87.442 Personal history of urinary calculi; I10 Essential (primary) hypertension; E07.9 Disorder of thyroid, unspecified; Z96.0 Presence of urogenital implants; Z87.891 Personal history of nicotine dependence; K44.9 Diaphragmatic hernia without obstruction or gangrene; K57.30 Diverticulosis of large intestine without perforation or abscess without bleeding
CPT/HCPCS: 74176; 99282; A9270-GY

== ENCOUNTER 2018-07-13 09:10 | Emergency (ER) | payer MEDICARE ==
[2018-07-13 09:50] VITALS: BP 140/75
--- NOTE | 2018-07-13 10:07 | UC ---
Complaint Male HPI - HPI Summary HPI Summary: 73 year old with concern for UTI . On his 7 stent in kidney. States took azo- but stopped it yesterday. States burning with urination last night . No fever. no flank pain. no n/v/d . no chills. no abdominal pain. - History of Current Complaint Chief Complaint: UCGU Stated Complaint: URINARY Time Seen by Provider: 07/13/18 10:00 Hx Obtained From: Patient, Family/Route Delivery Service Driver Onset/Duration: Gradual Onset Timing: Intermittent Pain Intensity: 3 - Allergies/Home Medications Allergies/Adverse Reactions: Allergies Allergy/AdvReac Type Severity Reaction Status Date / Time Tetanus Vaccines and Toxoid Allergy n/v Verified 07/13/18 09:43 Home Medications: Home Medications Ascorbic Acid TAB* [Vitamin C TAB*] 1,000 mg PO DAILY 07/13/18 [History Confirmed 07/13/18] PMH/Surg Hx/FS Hx/Imm Hx Previously Healthy: Yes Endocrine History: Dyslipidemia Cardiovascular History: Cardiac Disease, Hypertension, Congestive Heart Failure - Surgical History Surgical History: Yes Surgery Procedure, Year, and Place: Stent X 3 ONE HERE 2 IN [place]. CARDIAC STENT [address] [facility] - Family History Known Family History: Positive: Cardiac Disease - Social History Occupation: Retired Alcohol Use: Rare Alcohol Amount: FEW DRINKS/YEAR Substance Use Type: None Smoking Status (MU): Former Smoker Type: Cigarettes Amount Used/How Often: once in a while Have You Smoked in the Last Year: No When Did the Patient Quit Smoking/Using Tobacco: 35 years ago Review of Systems Genitourinary: Dysuria, Frequency, Urgency Is Patient Immunocompromised?: No All Other Systems Reviewed And Are Negative: Yes Physical Exam Triage Information Reviewed: Yes Appearance: Well-Appearing, No Pain Distress, Well-Nourished Vital Signs: Initial Vital Signs Temp 98.6 F 07/13/18 09:45 Pulse 70 07/13/18 09:45 Resp 16 07/13/18 09:45 BP 140/75 07/13/18 09:45 Pulse Ox 97 07/13/18 09:45 Vital Signs Reviewed: Yes Eye Exam: Normal ENT Exam: Normal Dental Exam: Normal Neck exam: Normal Neck: Positive: 1 Respiratory Exam: Normal Cardiovascular Exam: Normal Abdominal Exam: Normal Musculoskeletal Exam: Normal Neurological Exam: Normal Psychological Exam: Normal Skin Exam: Normal Complaint Male Course/Dx - Course Course Of Treatment: he has leuks and nitrite in urine. send for culture . has had neg U/A in the past from Urology as he has gotten these sx in the past after a stent placed in the kidney but not had in the past 6 mo. he took Azo yesterday but states he tested his urine yesterday and it was (+) for infection. start cipro at this time and if neg culture can stop cipro. he is aware of SE of meds. also advise f/u with Urologist / PCP. If Sx worsen then go to ED - Differential Dx/Diagnosis Differential Diagnosis/HQI/PQRI: Urinary Tract Infection Provider Diagnoses: UTI Discharge - Sign-Out/Discharge Documenting (check all that apply): Patient Departure All imaging exams completed and their final reports reviewed: No Studies - Discharge Plan Condition: Good Disposition: HOME Prescriptions: Ciprofloxacin TAB* [Cipro 500 MG TAB*] 500 mg PO BID 7 Days #14 tab Patient Education Materials: Urinary Tract Infection in Men (ED) Referrals: Michaela Nolasco MD [Primary Care Provider] - 3 Days - Billing Disposition and Condition Condition: GOOD Disposition: Home
== END 2018-07-13 10:29 | disposition home or self-care (01) ==
LOC: UCCORT 09:10
DX: N39.0 Urinary tract infection, site not specified (principal); I11.0 Hypertensive heart disease with heart failure; I50.9 Heart failure, unspecified; Z87.891 Personal history of nicotine dependence; Z88.7 Allergy status to serum and vaccine; Z95.5 Presence of coronary angioplasty implant and graft
CPT/HCPCS: 81003; 87086; 99212; G0463

== ENCOUNTER 2018-08-09 05:38 | Day surgery (SDC) | payer MEDICARE ==
--- NOTE | 2018-07-30 22:17 | HP ---
CC: Dr. Michaela Nolasco * ADMITTING HISTORY AND PHYSICAL: DATE OF ADMISSION: 08/09/18 ADMITTING DIAGNOSES: 1. Right hydronephrosis. 2. Stricture, right ureter. PLANNED PROCEDURE: Right retrograde and right ureteral stent change. SURGEON: Dr. Alberto. HISTORY OF PRESENT ILLNESS: Mike Kenney is a 73-year-old gentleman with a history of right distal ureteral stricture. This arose after ureteroscopy that had been done at an outside hospital a few years ago and he has been managed with an indwelling stent. His stent was last changed on 01/21/18 and he has an 8.5-Romansh 28 cm silicone stent in the right ureter. PAST MEDICAL HISTORY: Significant for: 1. Coronary artery disease. 2. Chronic kidney disease. 3. Recurrent right ureteral stricture. 4. Hypertension. MEDICATIONS ON ADMISSION: 1. Metoprolol 25 mg a day. 2. Crestor 1 tablet daily. 3. Aspirin 81 mg a day. 4. Levothyroxine 1 tablet daily. 5. Entresto 1 tablet daily. ALLERGIES AND INTOLERANCES: TETANUS TOXOID. REVIEW OF SYSTEMS: He is otherwise in fairly good health. He denies any recent chest pain or shortness of breath. There is no history of diabetes mellitus or any other major systemic illness. PHYSICAL EXAMINATION GENERAL: Reveals a pleasant, elderly gentleman. VITAL SIGNS: Blood pressure is 144/80, pulse 67 per minute and regular, oxygen saturation 96% on room air. LUNGS: Clear bilaterally. CARDIOVASCULAR: Regular rate and rhythm. S1, S2. ABDOMEN: Soft with mild right flank tenderness. IMPRESSION: A 73-year-old gentleman with a stricture in the right ureter, who has been managed with an indwelling stent. PLAN: Planned procedure is right retrograde and right stent change. [id number]/[facility] #: [id number] [facility]
[~2018-08-09 05:38] MED LIST changes: +Buffered Lidocaine 0.9% SYRIN* 5 ML/SYR SYRINGE INTRADERM ONE; -Dexamethasone IV* 4 MG/ML 1 ML (4 MG) ONE; -Iohexol 180 (CONTRAST) 10 ML SDV IV ONE; -Lidocaine 2% PF * 5 ML VIAL ONE; -Midazolam* 1 MG/ML 5 ML VIAL (5 MG) ONE; -Naloxone* 0.4 MG/ML 1 ML VIAL IV PRN; -Ondansetron INJ* 2 MG/ML VIAL ONE; -Ondansetron ODT TAB* 4 MG PO PRN; -Phenylephrine IV* 40 MCG/ML 10 ML SYRINGE ONE; -Propofol* 10 MG/ML 20 ML BTL IV PUSH ONE; -cefTRIAXone(*) 2 GM ADDV.VIAL IVPB ONE; -fentaNYL* 50 MCG/ML 2 ML VIAL (100 MCG VIAL) IV PRN; -fentaNYL* 50 MCG/ML 2 ML VIAL (100 MCG VIAL) ONE; -oxyCODONE/Acetamin 5/325 MG* TAB PO PRN
[2018-08-09] MEDS ORDERED: Famotidine IV* 10 MG/ML 2 ML (20 mg) IV ONE (06:00)
[2018-08-09] MEDS ORDERED: cefTRIAXone(*) 2 GM ADDV.VIAL IVPB ONE (06:41)
[2018-08-09] MEDS ORDERED: Buffered Lidocaine 0.9% SYRIN* 5 ML/SYR SYRINGE ONE (06:41)
[2018-08-09] MEDS ORDERED: Famotidine IV* 10 MG/ML 2 ML (20 mg) ONE (06:41)
[2018-08-09] MEDS ORDERED: Iohexol 180 (CONTRAST) 10 ML SDV IV ONE (08:07)
[2018-08-09] MEDS ORDERED: fentaNYL* 50 MCG/ML 2 ML VIAL (100 MCG VIAL) ONE (08:28)
[2018-08-09] MEDS ORDERED: Midazolam* 1 MG/ML 5 ML VIAL (5 MG) ONE (08:28)
[2018-08-09] MEDS ORDERED: Propofol* 10 MG/ML 20 ML BTL ONE (08:49)
[2018-08-09] MEDS ORDERED: Lidocaine 2% PF * 5 ML VIAL ONE (08:49)
[2018-08-09] MEDS ORDERED: Ketorolac INJ* 30 MG/ML 1 ML VIAL ONE (08:49)
[2018-08-09] MEDS ORDERED: Dexamethasone IV* 4 MG/ML 1 ML (4 MG) ONE (08:49)
[2018-08-09] MEDS ORDERED: Ondansetron INJ* 2 MG/ML VIAL ONE (08:49)
[2018-08-09] MEDS ORDERED: Naloxone* 0.4 MG/ML 1 ML VIAL IV PRN (09:25)
[2018-08-09] MEDS ORDERED: DiMENhydriNATE IV* 50 MG/ML VIAL IV PUSH PRN (09:25)
[2018-08-09] MEDS ORDERED: oxyCODONE TAB* 5 MG TAB PO PRN (09:25)
[2018-08-09] MEDS ORDERED: Acetaminophen TAB* 325 MG PO PRN (09:25)
[2018-08-09] MEDS ORDERED: oxyCODONE TAB* 5 MG TAB ONE (09:35)
[2018-08-09 10:19] VITALS: BP 119/73
--- NOTE | 2018-08-10 06:41 | OP ---
CC: Dr. Michaela Nolasco * DATE OF OPERATION: 08/09/18 - [facility] DATE OF : 49 SURGEON: Salvador Alberto MD ANESTHESIOLOGIST: Dr. Griffith ANESTHESIA: General. PRE-OP DIAGNOSES: 1. Right hydronephrosis. 2. Stricture, right ureter. POST-OP DIAGNOSES: 1. Right hydronephrosis. 2. Stricture, right ureter. OPERATIVE PROCEDURE: Cystoscopy, right retrograde pyelogram, right ureteral stent change. OPERATIVE FINDINGS: 1. Normal appearing bladder. 2. Mild fullness of the right collecting system. INDICATIONS: Mike Kenney is a 73-year-old gentleman who had developed ureteral stricture after procedure done at [facility]. He has been managed with an indwelling right stent. COMPLICATIONS: None. POSTOPERATIVE CONDITION: Stable. STENT USED: 8.5-Spanish 28 cm silicone stent, right ureter. DESCRIPTION OF PROCEDURE: After induction of general anesthesia, the patient was placed in dorsal lithotomy position. Sequential compression devices were in place and functioning. Initial evaluation revealed a normal-appearing urethra. There was mild prostatic enlargement noted. The bladder was examined. The previously placed stent was noted and removed. Retrograde pyelogram revealed mild fullness of the right collecting system with no persistent filling defects. A new 8.5 Spanish 28-cm silicone stent was introduced and positioned under fluoroscopy with good proximal and distal positioning obtained. The bladder was emptied. The patient tolerated the procedure satisfactorily and was transferred back to the recovery area in stable condition. [id number]/[facility] #: [id number] MTDD
== END 2018-08-09 10:22 | disposition home or self-care (01) ==
LOC: OR 05:38
PROVIDERS: ATTEND Urology
DX: N13.1 Hydronephrosis with ureteral stricture, not elsewhere classified (principal); I25.10 Atherosclerotic heart disease of native coronary artery without angina pectoris; N18.9 Chronic kidney disease, unspecified; I12.9 Hypertensive chronic kidney disease with stage 1 through stage 4 chronic kidney disease, or unspecified chronic kidney disease; I25.2 Old myocardial infarction; E03.9 Hypothyroidism, unspecified
CPT/HCPCS: 74420; A9270-GY; C1876; J0696; J1100; J1885; J2250; J2405; J2704; J3010

== ENCOUNTER → 2018-12-18 08:10 | Day surgery (SDC) | payer MEDICARE ==
--- NOTE | 2018-12-16 16:56 | HP ---
CC: Dr. Michaela Nolasco DATE OF ADMISSION: 12/18/2018. AGE: 73-year-old male. ADMITTING DIAGNOSES: 1. Right hydronephrosis. 2. Stricture right ureter. PLANNED PROCEDURE: Right retrograde, right stent insertion, possible ureteroscopy and balloon dilata tion. SURGEON: Dr. Salvador Alberto. HISTORY OF PRESENT ILLNESS: Mike Kenney is a 73-year-old gentleman with a history of recurrent rig ht ureteral stricture, managed with an indwelling stent which had been removed a few weeks ago. A fo llow-up ultrasound revealed recurrence of right hydronephrosis and he is now being brought in for rig ht stent insertion and ureteroscopy and balloon dilatation. PAST MEDICAL HISTORY: Significant for: 1. Chronic kidney disease. 2. Right ureteral stricture. 3. Coronary artery disease. 4. Hypertension. MEDICATIONS ON ADMISSION: 1. Entresto 49-51 one tablet daily. 2. Metoprolol 25 mg daily. 3. Rosuvastatin 20 mg daily. 4. Levothyroxine 0.075 mg daily. 5. Aspirin 81 mg daily. ALLERGIES: TETANUS. REVIEW OF SYSTEMS: He is otherwise in good health. There is no history of any diabetes mellitus or any other major systemic illness. He denies any chest pain or shortness of breath, and is fairly act saul physically. PHYSICAL EXAMINATION GENERAL: Pleasant, elderly gentleman. VITAL SIGNS: Blood pressure 140/78, pulse 65 per minute and regular, oxygen saturation 97 percent on room air. CARDIOVASCULAR: Regular rate and rhythm. S1, S2. LUNGS: Clear bilaterally. ABDOMEN: Soft with very mild right flank tenderness. IMPRESSION: 73-year-old gentleman with recurrent stricture right distal ureter. PLAN: Planned procedure is right retrograde, right ureteroscopy, balloon dilatation and right stent insertion. [id number]/[facility] #: [id number]
[~2018-12-18 08:10] MED LIST changes: +Acetaminophen TAB* 325 MG PO PRN; -Buffered Lidocaine 0.9% SYRIN* 5 ML/SYR SYRINGE INTRADERM ONE; +Buffered Lidocaine 1% SYRIN* 1 ML/SYRINGE INTRADERM ONE; +Dexamethasone IV* 4 MG/ML 1 ML (4 MG) IV SLOW PU ONE; +Dexamethasone IV* 4 MG/ML 1 ML (4 MG) ONE; +DiMENhydriNATE IV* 50 MG/ML VIAL IV PUSH PRN; +Famotidine TAB* 20 MG ONE; +Famotidine TAB* 20 MG PO ONE; +Iohexol 180 (CONTRAST) 10 ML SDV IV ONE; +Ketorolac INJ* 30 MG/ML 1 ML VIAL IV PRN; +Lactated Ringers 1000 ML Bag* 1,000 ML IV SCH; +Lidocaine 2% PF * 5 ML VIAL ONE; +Midazolam* 1 MG/ML 2 ML VIAL (2 MG) ONE; +Naloxone* 0.4 MG/ML 1 ML VIAL IV PRN; +Ondansetron INJ* 2 MG/ML VIAL ONE; +Phenylephrine 40 MCG/ML SYRINGE ONE; +Propofol* 10 MG/ML 20 ML BTL ONE; +cefTRIAXone(*) 2 GM ADDV.VIAL IVPB ONE; +fentaNYL* 50 MCG/ML 2 ML VIAL (100 MCG VIAL) IV PRN; +fentaNYL* 50 MCG/ML 2 ML VIAL (100 MCG VIAL) ONE; +oxyCODONE/Acetamin 5/325 MG* TAB PO PRN
[2018-12-18 12:51] VITALS: BP 125/79
--- NOTE | 2018-12-18 15:27 | OP ---
CC: Dr. Michaela Nolasco * DATE OF OPERATION: 12/18/18 - [facility] DATE OF : 49 SURGEON: Salvador Alberto MD ANESTHESIOLOGIST: Dr. Kumar. ANESTHESIA: General. PRE-OP DIAGNOSIS: Right hydronephrosis. POST-OP DIAGNOSIS: Stricture, right ureter. OPERATIVE PROCEDURES: Cystoscopy, right retrograde pyelogram, right ureteroscopy, right ureteral balloon dilatation, and right stent insertion. COMPLICATIONS: None. STENT USED: An 8.5-Ugandan 28 cm silicone stent, right ureter. OPERATIVE FINDINGS: Stricture in right distal ureter, about 2 cm above ureterovesical junction with no evidence of any suspicious lesions noted within ureteral lumen. POSTOPERATIVE CONDITION: Stable. INDICATIONS: Mike Kenney is a 73-year-old gentleman with a longstanding history of a stricture in the right distal ureter, which has been managed with an indwelling stent. He had recently undergone stent removal and followup ultrasound revealed progressive right hydronephrosis. DESCRIPTION OF PROCEDURE: After induction of general anesthesia, the patient was placed in dorsal lithotomy position. Sequential compression devices were in place and functioning. Initial cystoscopy revealed normal appearing urethra , mildly enlarged prostate and a normal appearing bladder. A guidewire was introduced into the right orifice. Retrograde pyelogram revealed right hydronephrosis with a significantly dilated proximal right ureter. A 6-Ugandan semi-rigid ureteroscope was introduced and advanced under direct vision. About 2 cm above the ureterovesical junction, a narrow band of tissue was noted, which represented the stricture. The ureteroscope was advanced through this into the more proximal part of the ureter, which was unremarkable. There was no evidence of any suspicious mucosal lesions noted. Under fluoroscopic monitoring, balloon dilatation of the entire distal right ureter was successfully carried out and after this was done, an 8.5-Ugandan 28 cm black silicone stent was positioned under fluoroscopy with good proximal and distal positioning obtained. The patient tolerated the procedure satisfactorily and was transferred back to the recovery area in stable condition. [id number]/[facility] #: [id number] MTDD
== END | disposition home or self-care (01) ==
LOC: OR 08:10
PROVIDERS: ATTEND Urology
DX: N13.1 Hydronephrosis with ureteral stricture, not elsewhere classified (principal); N18.9 Chronic kidney disease, unspecified; I25.10 Atherosclerotic heart disease of native coronary artery without angina pectoris; I25.5 Ischemic cardiomyopathy; I12.9 Hypertensive chronic kidney disease with stage 1 through stage 4 chronic kidney disease, or unspecified chronic kidney disease; I25.2 Old myocardial infarction; E03.9 Hypothyroidism, unspecified; K21.9 Gastro-esophageal reflux disease without esophagitis
CPT/HCPCS: 74420; A9270-GY; C1876; J0696; J1100; J2250; J2405; J2704; J3010

== ENCOUNTER 2019-05-15 08:57 | Emergency (ER) | payer MEDICARE ==
[2019-05-15 09:17] VITALS: BP 128/74
--- NOTE | 2019-05-15 09:31 | UC ---
Complaint Male HPI - HPI Summary HPI Summary: 73 yo man with history of right ureteral stricture and recurrent UTI's with a 4 day history of dysuria and frequency. He has had some relief with azo which he stopped using 2 days ago, but symptoms persist. No fever of flankl pain. Stent placement in December 2018, meant to have followup with Dr. Hancock in July. He has a stent in place currently. Last culture was negative in July, at which time he was treated with ciprol Last creatinine in December was 2.1. - History of Current Complaint Chief Complaint: UCGU Stated Complaint: URINARY CONCERN Time Seen by Provider: 05/15/19 09:22 Hx Obtained From: Patient Onset/Duration: Gradual Onset, Lasting Days - 4 Timing: Intermittent, Lasting Minutes Severity Initially: Mild Severity Currently: Moderate Pain Intensity: 0 Location: None Character: Burning Aggravating Factor(s): Voiding Alleviating Factor(s): Other - azo, cranberry juice Associated Signs And Symptoms: Positive: Dysuria. Negative: Diaphoresis, Back Pain, Fever, Hematuria - Allergies/Home Medications Allergies/Adverse Reactions: Allergies Allergy/AdvReac Type Severity Reaction Status Date / Time Tetanus Vaccines and Toxoid Allergy Severe n/v Verified 05/15/19 09:17 PMH/Surg Hx/FS Hx/Imm Hx Cardiovascular History: Cardiac Disease, Congestive Heart Failure GI/ History: Other - UTI's and right ureteral stricture, BPH Psychological History: Post Traumatic Stress Disorder - Surgical History Surgical History: Yes Surgery Procedure, Year, and Place: renal Stent x9. CARDIAC STENT 3 YEARS AGO [facility]. right shoulder bursitis repair - Family History Known Family History: Positive: Cardiac Disease - mother [place] age 69 - Social History Lives: With Family Alcohol Use: None Alcohol Amount: FEW DRINKS/YEAR Substance Use Type: None Smoking Status (MU): Former Smoker Type: Cigarettes Amount Used/How Often: once in a while Have You Smoked in the Last Year: No When Did the Patient Quit Smoking/Using Tobacco: 35 years ago Review of Systems All Other Systems Reviewed And Are Negative: Yes Constitutional: Positive: Fatigue - chronically poor sleep Respiratory: Negative: Shortness Of Breath, Cough Cardiovascular: Negative: Palpitations, Chest Pain Gastrointestinal: Negative: Abdominal Pain, Vomiting, Diarrhea Genitourinary: Positive: Dysuria, Frequency, Urgency Motor: Positive: Negative Neurovascular: Positive: Negative Musculoskeletal: Positive: Negative Neurological: Positive: Negative Psychological: Positive: Negative Is Patient Immunocompromised?: No Physical Exam Triage Information Reviewed: Yes Appearance: Well-Appearing, Pain Distress - mild Vital Signs: Initial Vital Signs Temp 97.2 F 05/15/19 09:10 Pulse 64 05/15/19 09:10 Resp 16 05/15/19 09:10 BP 128/74 05/15/19 09:10 Pulse Ox 100 05/15/19 09:10 ENT: Positive: Pharynx normal Neck exam: Normal Respiratory: Positive: Lungs clear, Normal breath sounds Cardiovascular: Positive: RRR, No Murmur Abdomen Description: Positive: Nontender, No Organomegaly, Soft. Negative: CVA Tenderness (R), CVA Tenderness (L) Bowel Sounds: Positive: Present Musculoskeletal Exam: Normal Neurological Exam: Normal Psychological Exam: Normal Skin Exam: Normal Diagnostics - Laboratory Lab Results: Urine positive for leuks, rbc and esterace positive. Complaint Male Course/Dx - Course Course Of Treatment: Begin treatment for suspected UTI. He has evidence of renal compromise with elevation of creatinine, and hx of CHR. Will begin treatment of infection with cephalosporin and await culture. - Differential Dx/Diagnosis Differential Diagnosis/HQI/PQRI: Ureteral Calculi, Urinary Tract Infection Provider Diagnosis: UTI (urinary tract infection) Discharge ED - Sign-Out/Discharge Documenting (check all that apply): Patient Departure All imaging exams completed and their final reports reviewed: No Studies - Discharge Plan Condition: Stable Disposition: HOME Prescriptions: Cephalexin CAP* [Keflex 500 CAP*] 500 mg PO TID #21 cap Patient Education Materials: Urinary Tract Infection in Men (ED) Referrals: Michaela Nolasco MD [Primary Care Provider] - Additional Instructions: Begin treatment of urinary infection with cephalexin. Culture will be sent and you will be called if a change of antibiotics is needed. Follow up with Dr. Alberto if symptoms persist. - Billing Disposition and Condition Condition: STABLE Disposition: Home
== END 2019-05-15 09:51 | disposition home or self-care (01) ==
LOC: UCCORT 08:57
DX: N39.0 Urinary tract infection, site not specified (principal); Z87.440 Personal history of urinary (tract) infections; Z87.891 Personal history of nicotine dependence
CPT/HCPCS: 81003; 87086; 99212; G0463

== ENCOUNTER → 2019-06-30 05:35 | Day surgery (SDC) | payer MEDICARE ==
--- NOTE | 2019-06-26 18:21 | HP ---
CC: Dr. Michaela Nolasco * ADMITTING HISTORY AND PHYSICAL: DATE OF ADMISSION: 06/30/19 ADMITTING DIAGNOSIS: Right hydronephrosis (secondary to a stricture, right distal ureter). SURGICAL PROCEDURE: Cystoscopy, right retrograde pyelogram, right ureteroscopy , possible balloon dilatation and right stent insertion. SURGEON: Dr. Alberto. HISTORY OF PRESENT ILLNESS: Mike Kenney is a 74-year-old gentleman, who initially had an endoscopic procedure done in [place] a few years ago. He subsequently developed a severe stricture involving the right distal ureter, which I initially managed with a balloon dilatation and has been managed since then with periodic stent placements. He recently wanted to have the stent removed and this was done in my office and a followup ultrasound few weeks later revealed recurrence of right hydronephrosis. PAST MEDICAL HISTORY: Significant for: 1. Stricture, right distal ureter. 2. Chronic kidney disease. 3. Hypertension. 4. History of coronary artery disease. MEDICATIONS: 1. Metoprolol 25 mg a day. 2. Rosuvastatin 20 mg daily. 3. Entresto 49/51 one tablet once a day. 4. Aspirin 81 mg a day. 5. Levothyroxine 0.075 mg once a day. ALLERGIES AND INTOLERANCES: TETANUS TOXOID. FAMILY HISTORY: Noncontributory. SOCIAL HISTORY: Smoking history: He is a nonsmoker. REVIEW OF SYSTEMS: He denies any chest pain or shortness of breath. He recently had an evaluation including a carotid duplex ultrasound, which revealed less than 50% stenosis involving either proximal internal carotid arteries. PHYSICAL EXAMINATION VITAL SIGNS: Blood pressure is 130/80, pulse 80 per minute and regular, oxygen saturation 98% on room air, temperature 97. LUNGS: Clear bilaterally. CARDIOVASCULAR: Regular rate and rhythm. S1, S2. ABDOMEN: Soft with mild right flank tenderness. IMPRESSION: A 74-year-old gentleman with recurrent stricture right distal ureter and right hydronephrosis. PLAN: Planned procedure is right ureteroscopy, retrograde pyelogram, possible balloon dilatation and stent insertion. [id number]/[facility] #: [id number] [facility]
[~2019-06-30 05:35] MED LIST changes: +EPHEDrine (Pressors)* 50 MG/ML VIAL ONE; -Ketorolac INJ* 30 MG/ML 1 ML VIAL IV PRN; +cefTRIAXone(*) 2 GM in NS 0.9% 100 ML* 100 ML IVPB ONE
[2019-06-30 09:12] VITALS: BP 120/66
--- NOTE | 2019-06-30 10:03 | OP ---
CC: Dr. Michaela Nolasco * DATE OF OPERATION: 06/30/19 - [facility] DATE OF : 49 SURGEON: Salvador Alberto MD ANESTHESIOLOGIST: Dr. Kumar. ANESTHESIA: General. PRE-OP DIAGNOSES: 1. Right hydronephrosis. 2. Stricture, right distal ureter. POST-OP DIAGNOSES: 1. Right hydronephrosis. 2. Stricture, right distal ureter. OPERATIVE PROCEDURE: 1. Cystoscopy. 2. Right retrograde pyelogram. 3. Right ureteroscopy. 4. Right ureteral balloon dilatation. 5. Right stent insertion. COMPLICATIONS: None. STENT USED: 8.5 [place] 28 cm black silicon stent, right ureter. 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 OPERATIVE FINDINGS: Stricture, right distal ureter with right hydronephrosis and hydroureter. DESCRIPTION OF PROCEDURE: After induction of general anesthesia, patient was placed in dorsal lithotomy position, sequential compression devices were in place and functioning. Initial cystoscopy revealed a normal-appearing urethra and a mildly enlarged prostate. The bladder was examined and appeared unremarkable. A guidewire was introduced into the right ureter. Retrograde pyelogram revealed significant right hydronephrosis and proximal hydroureter. A 6-[place] semi-rigid ureteroscope was introduced and advanced into the ureter. Just above the ureterovesical junction, an area of narrowing consistent with location of the stricture was noted. The mucosa was somewhat blanched in that area. Just above it, there was a very small papillary lesion which did not look like a malignant lesion, but more likely irritation from chronic stenting. The remainder of the ureter was significantly dilated, but unremarkable. Balloon dilatation of the distal ureter was carried out under fluoroscopic monitoring successfully. Once this was done, an 8.5 [place] 28 cm silicon stent was introduced and positioned in the right ureter with good proximal and distal positioning obtained. The bladder was emptied. The patient tolerated the procedure satisfactorily and was transferred back to the recovery area in stable condition. [id number] #: [id number] MTDD
== END | disposition home or self-care (01) ==
LOC: OR 05:35
PROVIDERS: ATTEND Urology
DX: N13.1 Hydronephrosis with ureteral stricture, not elsewhere classified (principal); N18.9 Chronic kidney disease, unspecified; I12.9 Hypertensive chronic kidney disease with stage 1 through stage 4 chronic kidney disease, or unspecified chronic kidney disease; I25.10 Atherosclerotic heart disease of native coronary artery without angina pectoris; I25.2 Old myocardial infarction; Z95.5 Presence of coronary angioplasty implant and graft; E78.5 Hyperlipidemia, unspecified; E03.9 Hypothyroidism, unspecified; K21.9 Gastro-esophageal reflux disease without esophagitis; Z87.442 Personal history of urinary calculi
CPT/HCPCS: 74420; A9270-GY; C1876; J0696; J1100; J2250; J2405; J2704; J3010

== ENCOUNTER 2024-03-02 06:15 | Observation (INO) ==
[2024-03-02 07:19] LABS: Urine Appearance Clear; Urine Bilirubin Negative (Negative); Urine Blood 2+ (Negative); Urine Color Light-Yellow; Urine Glucose Negative (Negative); Urine Ketones Negative (Negative); Urine Nitrite Negative (Negative); Urine Protein 1+ (>=30 mg/dL) (Negative); Urine Specific Gravity 1.019 (1.002-1.030); Urine Urobilinogen Negative (Negative); Urine pH 5.5 (5.0-8.0)
[2024-03-02 08:17] LABS: Urine Bacteria Absent /HPF (Absent); Urine Red Blood Cell 3+(>10/hpf) /HPF (0-Trace); Urine White Blood Cell 2+(11-20/hpf) /HPF (0-Trace)
[2024-03-02 10:00] LABS: ABS Eosinophils 0.7 10^3/uL (0.0-0.5); ABS Lymphocytes 1.1 10^3/uL (1.0-4.8); ABS Monocytes 0.9 10^3/uL (0.0-1.1); ABS Neutrophils 6.9 10^3/uL (1.5-7.6); Eosinophil % 6.8 %; Hematocrit 44.6 % (38-53); Hemoglobin 15.3 g/dL (13.2-16.3); Lymphocyte % 11.2 %; Mean Corpuscular Hemoglobin 31.5 pg (27-33); Mean Corpuscular Hgb Conc 34.3 g/dL (31-36); Mean Platelet Volume 8.4 fL (7.5-11.2); Platelet Count 171 10^3/uL (150-450); Red Blood Count 4.85 10^6/uL (4.06-5.63); Red Cell Distribution Width 15.4 % (12-17); White Blood Count 9.5 10^3/uL (3.6-10.2)
[2024-03-02] MEDS: Acetaminophen IV 1 GM/100ML 1,000 MG/100 ML BAG IV ONE (10:40)
[2024-03-02 10:49] LABS: Albumin 4.1 g/dL (3.2-5.2); Albumin/Globulin Ratio 1.5 (1-3); Calcium 9.4 mg/dL (8.6-10.3); Creatinine, Serum 3.1 mg/dL (0.67-1.17); Globulin 2.8 g/dL (2-4); Total Bilirubin 0.6 mg/dL (0.2-1.0); Total Protein 6.9 g/dL (6.4-8.9); eGFR CKD-EPI 20.1 (>60)
[2024-03-02 11:21] LABS: High Sensitivity Troponin 1 Hr 34 pg/mL (<20)
[2024-03-02] MEDS: cefTRIAXone 2 gm/50 mL D5W 2 GM/50 ML BAG IV ONE (11:30)
[2024-03-02] MEDS: Ondansetron 4 mg VIAL 2 MG/ML 2 ml VIAL IV ONE (11:30)
[2024-03-02] MEDS: Morphine 4 MG/ML VIAL (1 ml) IV ONE (11:30)
[2024-03-02] MEDS: NS 0.9% 1000 ml BAG 1,000 ML IV ONE (11:31)
[2024-03-02] MEDS ORDERED: Ondansetron 4 mg VIAL 2 MG/ML 2 ml VIAL IV PRN (11:54)
[2024-03-02] MEDS ORDERED: fentaNYL 100 mcg/2 ml 50 MCG/ML VIAL IV SLOW PU PRN (11:56)
[2024-03-02] MEDS ORDERED: Prochlorperazine 5 mg/ml 2 ml VIAL (10 mg) IV PRN (11:56)
[2024-03-02] MEDS: Heparin 5000 UNITS/ML 1 mL VIAL SUBCUT ONE (13:20)
[2024-03-02] MEDS: Calcium Carb (TUMS) 500 mg CHEW TAB PO PRN (16:13)
[2024-03-03 07:15] LABS: ABS Eosinophils 0.6 10^3/uL (0.0-0.5); ABS Monocytes 0.7 10^3/uL (0.0-1.1); ABS Neutrophils 5.6 10^3/uL (1.5-7.6); Eosinophil % 7.6 %; Lymphocyte % 12.4 %; Mean Corpuscular Hemoglobin 31.3 pg (27-33); Mean Corpuscular Volume 92.1 fL (80-97); Mean Platelet Volume 8.3 fL (7.5-11.2); Platelet Count 153 10^3/uL (150-450); Red Blood Count 4.45 10^6/uL (4.06-5.63); Red Cell Distribution Width 15.6 % (12-17)
[2024-03-03 07:40] LABS: Calcium 8.7 mg/dL (8.6-10.3); Creatinine, Serum 2.92 mg/dL (0.67-1.17); eGFR CKD-EPI 21.6 (>60)
[2024-03-03] MEDS: Aspirin EC 81 mg TAB.EC (enteric coated) PO SCH (08:31)
[2024-03-03] MEDS: Lactated Ringers 1000 ml BAG 1,000 ML IV SCH (08:33)
[2024-03-03] MEDS ORDERED: Lactated Ringers 1000 ml BAG 1,000 ML IV SCH ×2 (09:00→16:00)
[2024-03-03] MEDS: cefTRIAXone 2 gm/50 mL D5W 2 GM/50 ML BAG IV ONE (13:22)
[2024-03-03] MEDS ORDERED: Propofol 10 MG/ML 20 ML BTL ONE (15:41)
[2024-03-03] MEDS ORDERED: Lidocaine 2% PF 5 ML VIAL ONE (15:41)
[2024-03-03] MEDS ORDERED: Midazolam 2 mg/2 ml VIAL 1 mg/ml 2 ml VIAL (2 mg) ONE (15:41)
[2024-03-03] MEDS ORDERED: fentaNYL 100 mcg/2 ml 50 MCG/ML VIAL ONE (15:41)
[2024-03-03] MEDS ORDERED: Ondansetron 4 mg VIAL 2 MG/ML 2 ml VIAL IV PRN (15:46)
[2024-03-03] MEDS ORDERED: fentaNYL 100 mcg/2 ml 50 MCG/ML VIAL IV PRN (15:46)
[2024-03-03] MEDS ORDERED: Acetaminophen IV 1 GM/100ML 1,000 MG/100 ML BAG IV ONE (15:46)
[2024-03-03] MEDS ORDERED: Naloxone 0.4 mg VIAL 0.4 mg/ml 1 ml VIAL IV PRN (15:46)
[2024-03-03] MEDS ORDERED: Buffered Lidocaine 1% SYRIN 1 ml INTRADERM ONE (15:46)
[2024-03-03] MEDS ORDERED: Iohexol 180 (CONTRAST) 10 ML SDV IV ONE (15:51)
[2024-03-03] MEDS ORDERED: NS 0.45% 1000 ml BAG 1,000 ML IV SCH (16:00)
[2024-03-03 17:45] VITALS: BP 140/76
== END 2024-03-03 18:25 | disposition home or self-care (01) ==
LOC: ED 06:15 → EDHOLD 06:15 → SUATTDRO 11:58 → SSU 13:00
PROVIDERS: ADMIT Student in an Organized Health Care Education/Training Program; ATTEND Internal Medicine

== ENCOUNTER 2024-05-31 05:59 | Observation (INO) ==
[2024-05-31] MEDS: Lactated Ringers 1000 ml BAG 1,000 ML IV ONE (07:16)
[2024-05-31] MEDS: Acetaminophen IV 1 GM/100ML 1,000 MG/100 ML BAG IV ONE (07:17)
[2024-05-31 07:32] LABS: ABS Basophils 0.1 10^3/uL (0.0-0.1); ABS Eosinophils 0.5 10^3/uL (0.0-0.5); ABS Lymphocytes 0.9 10^3/uL (1.0-4.8); ABS Monocytes 0.7 10^3/uL (0.0-1.1); Hematocrit 43.2 % (38-53); Lymphocyte % 12.4 %; Mean Corpuscular Hemoglobin 31.6 pg (27-33); Mean Corpuscular Hgb Conc 34.7 g/dL (31-36); Mean Corpuscular Volume 91.1 fL (80-97); Platelet Count 189 10^3/uL (150-450); Red Blood Count 4.74 10^6/uL (4.06-5.63); Red Cell Distribution Width 14.7 % (12-17); White Blood Count 7.1 10^3/uL (3.6-10.2)
[2024-05-31 07:57] LABS: Urine Appearance Clear; Urine Bilirubin Negative (Negative); Urine Blood 1+ (Negative); Urine Color Light-Yellow; Urine Glucose Negative (Negative); Urine Ketones Negative (Negative); Urine Nitrite Negative (Negative); Urine Protein 1+ (>=30 mg/dL) (Negative); Urine Specific Gravity 1.018 (1.002-1.030); Urine Urobilinogen Negative (Negative); Urine pH 5.5 (5.0-8.0)
[2024-05-31 08:06] LABS: Albumin 4.2 g/dL (3.2-5.2); Albumin/Globulin Ratio 1.8 (1-3); C Reactive Protein 2.25 mg/L (<8.01); Calcium 9.4 mg/dL (8.6-10.3); Creatinine, Serum 2.99 mg/dL (0.67-1.17); Globulin 2.3 g/dL (2-4); Potassium 4.7 mmol/L (3.5-5.0); Total Bilirubin 0.5 mg/dL (0.2-1.0); Total Protein 6.5 g/dL (6.4-8.9)
[2024-05-31 08:29] LABS: Urine Bacteria Absent /HPF (Absent); Urine Red Blood Cell 1+(3-5/hpf) /HPF (0-Trace); Urine Squamous Epithelial Cell Present /HPF (Absent); Urine White Blood Cell 1+(6-10/hpf) /HPF (0-Trace)
[2024-05-31] MEDS ORDERED: Al Hydrox/Mg Hydrox/Simet LIQ 30 ML UDC PO PRN (08:45)
[2024-05-31] MEDS ORDERED: Morphine 4 MG/ML VIAL (1 ml) IV PRN (09:31)
[2024-05-31] MEDS ORDERED: Iohexol 180 (CONTRAST) 10 ML SDV IV ONE (09:32)
[2024-05-31] MEDS ORDERED: Propofol 10 MG/ML 20 ML BTL ONE ×2 (09:34)
[2024-05-31] MEDS ORDERED: Lidocaine 2% PF 5 ML VIAL ONE (09:34)
[2024-05-31] MEDS: Morphine 4 MG/ML VIAL (1 ml) IV ONE (09:34)
[2024-05-31] MEDS ORDERED: Sevoflurane BOTTLE ONE (09:34)
[2024-05-31] MEDS: cefTRIAXone 2 gm/50 mL D5W 2 GM/50 ML BAG IV ONE (09:35)
[2024-05-31] MEDS ORDERED: Midazolam 2 mg/2 ml VIAL 1 mg/ml 2 ml VIAL (2 mg) ONE (10:03)
[2024-05-31] MEDS ORDERED: Naloxone 0.4 mg VIAL 0.4 mg/ml 1 ml VIAL IV PRN (10:21)
[2024-05-31] MEDS ORDERED: fentaNYL 100 mcg/2 ml 50 MCG/ML VIAL IV PRN (10:21)
[2024-05-31] MEDS ORDERED: Ondansetron 4 mg VIAL 2 MG/ML 2 ml VIAL IV PRN (10:21)
[2024-05-31] MEDS ORDERED: Buffered Lidocaine 1% SYRIN 1 ml INTRADERM ONE (10:21)
[2024-05-31] MEDS ORDERED: fentaNYL 100 mcg/2 ml 50 MCG/ML VIAL ONE (10:30)
[2024-05-31] MEDS ORDERED: Dexamethasone IV 4 MG/ML VIAL 1 ml VIAL ONE ×2 (10:47)
[2024-05-31] MEDS ORDERED: Ondansetron 4 mg VIAL 2 MG/ML 2 ml VIAL ONE (10:47)
[2024-05-31] MEDS ORDERED: Phenylephrine 40 mcg/mL 10mL (400mcg) SYRINGE ONE (10:50)
[2024-05-31] MEDS ORDERED: Lactated Ringers 1000 ml BAG 1,000 ML IV SCH (11:00)
[2024-05-31 12:26] VITALS: BP 129/69
[2024-06-01] MEDS ORDERED: cefTRIAXone 1 gm/50 mL D5W 1 GM/50 ML BAG IV SCH (09:00)
[2024-06-01] MEDS ORDERED: Enoxaparin 30 MG/0.3 ML SYR SUBCUT SCH (09:00)
[2024-06-01] MEDS ORDERED: Aspirin EC 81 mg TAB.EC (enteric coated) PO SCH (09:00)
== END 2024-05-31 12:10 | disposition home or self-care (01) ==
LOC: ED 05:59 → EDHOLD 05:59 → AA 10:04
PROVIDERS: ADMIT Internal Medicine; ATTEND Internal Medicine